=== PATIENT | female | born 1955 | race Two or more races ===

== ENCOUNTER 2021-04-11 20:41 | Emergency (ER) | payer SELFPAY ==
[2021-04-11 20:57] VITALS: BP 168/94; PULSE 97; RESP 16; TEMP 36.7; O2SAT 100; BMI 22.2
[2021-04-11 22:00] VITALS: BP 188/94; PULSE 98; RESP 15; O2SAT 98
[2021-04-12] VITALS: BP 192/103; PULSE 97; RESP 15; O2SAT 100
--- NOTE | 2021-04-12 01:18 | ED_ITS ---
HPI - General Adult General Chief complaint: General Medical Stated complaint: high blood pressure Time Seen by Provider: 04/11/21 23:36 Source: patient, family (Daughter) and aerial photograph interpreter Mode of arrival: ambulatory History of Present Illness HPI narrative: 65-year-old female asymptomatic hypertensive who is here from [place] due to the demise of her son. She forgot her medication in [place] and is waiting for her to send it to her. Her daughter checked her blood pressure and noted that it was elevated, however patient denies any dizziness, headache, chest pain, shortness of breath. She is just requesting blood pressure medication until her is a arrives. Related Data Previous Rx's Medication Instructions Recorded lisinopril 40 mg PO DAILY #3 tab 04/12/21 Allergies Allergy/AdvReac Type Severity Reaction Status Date / Time No Known Allergies Allergy Unverified 04/12/21 00:59 Review of Systems Review of Systems: Pertinent positives and negatives as stated in HPI 10 point review of systems is otherwise negative. PMFSH Past Medical History Source: nursing notes reviewed Social History Social History Alcohol intake: unknown Smoking Status: Unknown if ever smoked Use of substances other than those prescribed or required for medical reasons: Unknown Advance Directives: No Advance Directives Information Provided: Yes Physical Exam Vital Signs: Vital Signs: Last Vital Signs Temp 96.8 F 04/12/21 03:39 Pulse 86 04/12/21 03:39 Resp 15 04/12/21 03:39 BP 121/70 04/12/21 03:39 Pulse Ox 98 04/12/21 03:39 Body Mass Index 22.2 VITAL SIGNS: Reviewed. GENERAL: Well developed, well nourished, in no acute distress. HEAD: Normocephalic/atraumatic, EYES: PERRLA, EOMI EARS: Ext canals without abnormality NOSE: Nares patent bilateral OROPHARYNX: no oral lesions noted, posterior pharynx clear NECK: Supple, no adenopathy LUNGS: Normal breath sounds. No adventitious sounds or accessory muscle use. SpO2<98> CARDIOVASCULAR: Regular rate and rhythm without noted murmurs, no JVD or lower extremity edema. ABDOMEN: Soft, non-tender, non-distended with bowel sounds. NEUROLOGIC: Alert and oriented x 4. Course Course Course Narrative: 65-year-old female with history and clinical presentation consistent with underlying hypertension that is otherwise asymptomatic and patient requesting medications until hers arrive. She was provided with a single dose of lisinopril here in the emergency room and on re-evaluation is noted to have good blood pressure control. She will be discharged 3 doses of lisinopril which should cover until hers arrive from [place]. She is otherwise stable for discharge. Medical Decision Making ECG Data Attestation: I personally reviewed and interpreted this ECG as follows: Prior ECG tracings: not available for review Interpretation: Normal sinus rhythm, HR -80, no evidence of acute ischemia, WV/QRS/QTC is within normal limits. Discharge Plan Discharge Clinical Impression: Hypertension Patient Disposition: Home, Self-Care Instructions: Hypertension (ED) Additional Instructions: 1. Kristen un seguimiento con moise proveedor de atenci?n primaria en los pr?ximos 2-3 d?as para charles reevaluaci?n. Regrese a la jihan de emergencias por cualquier empeoramiento lion de los s?ntomas. Prescriptions: New lisinopril 40 mg tablet 40 mg PO DAILY Qty: 3 RF: 0 Print Language: Norwegian
[2021-04-12 02:00] VITALS: BP 188/94; BP 192/102; PULSE 84; PULSE 91; RESP 15; O2SAT 98
[2021-04-12] MEDS: lisinopriL 40 MG TABLET PO (02:00)
--- NOTE | 2021-04-12 02:34 | PC.NURSE ---
Patient left [place] to come to the [facility] for her sons . Patient knew when she left [place] she did not have enough hypertension medication. Patient ran out of medication as of yesterday and came in tonight because bp elevated.
[2021-04-12 03:39] VITALS: BP 121/70; PULSE 86; RESP 15; TEMP 36; O2SAT 98
== END 2021-04-12 04:03 | disposition home or self-care (01) ==
PROVIDERS: Emergency Provider Student in an Organized Health Care Education/Training Program
DX: I10 Essential (primary) hypertension (principal); Z91.14 Patient's other noncompliance with medication regimen; Z79.899 Other long term (current) drug therapy
CPT/HCPCS: 99284

== ENCOUNTER 2021-09-11 14:38 | Outpatient (REF) | payer MEDICAID, SELFPAY ==
[2021-09-11 15:52] LABS: Anion Gap 13 (12-20); Blood Urea Nitrogen 11 mg/dL (9-16); Calcium 10.3 mg/dL (8.4-10.2); Carbon Dioxide 30 mmol/L (22-29); Chloride 104 mmol/L (96-108); Estimated Glomerular Filt Rate > 60; Glucose Random 83 mg/dL (60-115); Potassium 5.1 mmol/L (3.3-5.1); Sodium 142 mmol/L (135-145)
[2021-09-11 16:21] LABS: Vitamin B12 353 pg/mL (200-900)
[2021-09-12 08:05] LABS: Syphilis Screen Nonreactive (Nonreactive)
== END 2021-09-11 14:39 | disposition home or self-care (01) ==
LOC: HO.LAB 14:38
PROVIDERS: Visit Provider Psychiatry & Neurology Neurology
DX: F10.27 Alcohol dependence with alcohol-induced persisting dementia (principal)
CPT/HCPCS: 36415; 80048; 82607; 86780

== ENCOUNTER → 2022-03-14 13:29 | Outpatient (BNVA) | payer MEDICAID, SELFPAY | PROVIDERS: Visit Provider Obstetrics & Gynecology | DX: Z01.419 Encounter for gynecological examination (general) (routine) without abnormal findings (principal) ==

== ENCOUNTER 2022-04-19 12:26 | Outpatient (REF) | payer MEDICAID, SELFPAY ==
--- NOTE | ~2022-04-19 | MM_ITS ---
EXAMINATION: MM SCREENING DIGITAL BREAST TOMOSYNTHESIS, BILATERAL CLINICAL INFORMATION: Screening. Asymptomatic. Prior outside mammography from [place] currently unavailable. The lifetime risk of breast cancer based on the Tyrer-Cuzick Model is 3%. COMPARISON: None. TECHNIQUE: Digital breast tomosynthesis is performed in both the craniocaudal and mediolateral oblique views along with computer-aided detection (CAD). Synthesized 2D images are generated from the tomosynthesis. Additional right MLO view is provided. FINDINGS: There are scattered areas of fibroglandular density (ACR BI-RADS breast composition Category b). There are no significant masses, abnormal calcifications, or other abnormalities. The axilla and skin contours are unremarkable. There are scattered bilateral predominantly vascular calcifications. MM/MM tomosynthesis screening BI IMPRESSION: No mammographic evidence of malignancy. ASSESSMENT: BI-RADS 1: Negative RECOMMENDATION: Routine annual mammography screening. This patient's information was entered into a reminder system with a target due date for their next mammogram.
--- NOTE | ~2022-04-19 | MM_ITS ---
EXAMINATION: BONE DENSITOMETRY CLINICAL INDICATION: Menopause. COMPARISON: None (current study represents initial baseline exam). TECHNIQUE: Using a BlikBook DXA System (software version: 13.1) manufactured by [employer], dual-energy x-ray absorptiometry was performed of the lumbar spine and left hip. The images are of good technical quality. Summary results are attached. FINDINGS: AP SPINE L1-L4: BMD 0.859 g/cm2, Z-score -0.6, T-score -2.7, osteoporosis. LEFT FEMUR, NECK: BMD 0.595 g/cm2, Z-score -1.3, T-score -3.2, osteoporosis. LEFT FEMUR, TOTAL: BMD 0.531 g/cm2, Z-score -2.1, T-score -3.8, osteoporosis. IDENTIFIED RISK FACTORS: Early menopause, dementia, hysterectomy, secondary osteoporosis. HISTORY OF FRACTURE: None listed. MEDICATIONS: Calcium. MM/XR DEXA axial skeleton IMPRESSION: 1. DIAGNOSIS: Osteoporosis based on the lowest T-score value of -3.8 in the total femur applying World Health Organization criteria. 2. 10-YEAR FRACTURE RISK PREDICTION, FRAX: According to the guidelines, FRAX calculation should only be performed on patients in the osteopenia bone density category. Therefore, FRAX was not performed on this patient. 3. Treatment Recommendations: NOF guidelines recommend consideration for treatment in postmenopausal women and men age 50 and older presenting with the following: -A hip or vertebral (clinical or morphometric) fracture. -T-score less than or equal to -2.5 at the femoral neck or spine after appropriate evaluation to exclude secondary causes. -Low bone mass at the hip or spine and a 10-year fracture probability by FRAX of greater than or equal to 3% for hip fracture or greater than or equal to 20% for major osteoporotic fracture based on the [place] adapted WHO algorithm. 4. Other Recommendations: All treatment decisions require clinical judgment and consideration of individual patient factors, including patient preferences, comorbidities, previous drug use, risk factors not captured in the FRAX model (e.g. frailty, falls, vitamin D deficiency, increased bone turnover, interval significant decline in bone density) and possible under or overestimation of fracture risk by FRAX. Additional medical evaluation for secondary cause of low bone mineral density may be appropriate. FUTURE SCAN RECOMMENDATION: People with diagnosed cases of osteoporosis or at high risk for fracture should have regular bone mineral density tests. For patients eligible for Medicare, routine testing is allowed once every 2 years. The testing frequency can be increased to one year for patients who have rapidly progressing disease, those who are receiving or discontinuing medical therapy to restore bone mass, or have additional risk factors.
== END 2022-04-19 12:27 | disposition home or self-care (01) ==
LOC: HO.MAMMO 12:26
PROVIDERS: Visit Provider Obstetrics & Gynecology
DX: Z12.31 Encounter for screening mammogram for malignant neoplasm of breast (principal); Z13.820 Encounter for screening for osteoporosis; Z78.0 Asymptomatic menopausal state; M81.0 Age-related osteoporosis without current pathological fracture
CPT/HCPCS: 77063; 77067; 77080

== ENCOUNTER → 2022-05-28 14:24 | Outpatient (BNVA) | payer MEDICAID, SELFPAY | PROVIDERS: Visit Provider Obstetrics & Gynecology | DX: M81.0 Age-related osteoporosis without current pathological fracture (principal) | CPT/HCPCS: 99212 ==

== ENCOUNTER → 2022-08-12 13:42 | Outpatient (BNVA) | payer MEDICAID, SELFPAY | PROVIDERS: PCP Internal Medicine; Visit Provider Nurse Practitioner Family | DX: Z01.818 Encounter for other preprocedural examination (principal); K59.04 Chronic idiopathic constipation; K21.9 Gastro-esophageal reflux disease without esophagitis | CPT/HCPCS: 99202 ==

== ENCOUNTER 2022-09-23 14:46 | Outpatient (REF) | payer MEDICAID, SELFPAY ==
[2022-09-23 16:02] LABS: Hematocrit 36.6 % (37.0-47.0); Hemoglobin 11.6 g/dl (12.0-16.0); Mean Corpuscular HGB Conc 31.7 g/dl (31.0-35.0); Mean Corpuscular Hemoglobin 27.5 pg (27.0-33.0); Mean Corpuscular Volume 86.7 fL (80.0-98.0); Mean Platelet Volume 10.8 fL (9.4-12.3); Platelet Count 321 X10*3/uL (160-400); Red Blood Count 4.22 X10*6/uL (4.20-5.50); Red Cell Distribution Width 13.2 % (11.0-16.0); White Blood Count 6.4 X10*3/uL (4.8-10.8)
[2022-09-23 16:18] LABS: Alanine Aminotransferase 21 U/L (0-31); Albumin Level 4.6 g/dL (3.5-5.0); Alkaline Phosphatase 82 U/L (39-117); Anion Gap 16 (12-20); Aspartate Amino Transferase 16 U/L (5-31); Bilirubin Total 0.4 mg/dL (0.0-1.0); Blood Urea Nitrogen 15 mg/dL (9-16); Calcium 10.2 mg/dL (8.4-10.2); Carbon Dioxide 27 mmol/L (22-29); Chloride 102 mmol/L (96-108); Estimated Glomerular Filt Rate > 60; Glucose Random 89 mg/dL (60-115); Sodium 140 mmol/L (135-145); Total Protein 7.7 g/dL (6.5-8.0)
== END 2022-09-23 14:47 | disposition home or self-care (01) ==
LOC: HO.LAB 14:46
PROVIDERS: Visit Provider Nurse Practitioner Family
DX: K21.9 Gastro-esophageal reflux disease without esophagitis (principal); K59.04 Chronic idiopathic constipation
CPT/HCPCS: 36415; 80053; 85027; 99212

== ENCOUNTER 2023-04-28 16:23 | Outpatient (REF) | payer MEDICARE, MEDICAID, SELFPAY ==
--- NOTE | ~2023-04-28 | MM_ITS ---
EXAMINATION: MM SCREENING DIGITAL BREAST TOMOSYNTHESIS, BILATERAL CLINICAL INFORMATION: Screening. Asymptomatic. The lifetime risk of breast cancer based on the Tyrer-Cuzick Model is 5%. COMPARISON: Mammography: 04/19/2022 (new baseline). TECHNIQUE: Digital breast tomosynthesis is performed in both the craniocaudal and mediolateral oblique views along with computer-aided detection (CAD). Synthesized 2D images are generated from the tomosynthesis. FINDINGS: There are scattered areas of fibroglandular density (ACR BI-RADS breast composition Category b). There are no significant masses, abnormal calcifications, or other abnormalities. Parenchymal pattern is similar to prior new baseline exam. No architectural abnormality. There are bilateral vascular calcifications. The axilla and skin contours are unremarkable. No significant changes. MM/MM tomosynthesis screening BI IMPRESSION: No mammographic evidence of malignancy. ASSESSMENT: BI-RADS 1: Negative RECOMMENDATION: Routine annual mammography screening. This patient's information was entered into a reminder system with a target due date for their next mammogram.
== END 2023-04-28 16:24 | disposition home or self-care (01) ==
LOC: HO.MAMMO 16:23
PROVIDERS: PCP Internal Medicine; Visit Provider Internal Medicine
DX: Z12.31 Encounter for screening mammogram for malignant neoplasm of breast (principal)
CPT/HCPCS: 77063; 77067

== ENCOUNTER 2023-06-02 13:58 | Outpatient (AMB) | payer MEDICARE, MEDICAID, SELFPAY ==
--- NOTE | 2023-06-02 14:00 | MHC.OFFVIS ---
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 No complaints. Last Pap/HPV was many years ago no history of abnormal Pap smear, the patient is status post hysterectomy for benign disease Last Mammogram was BI-RADS 1 in 05/16 Last Colonoscopy long time ago Last DEXA scan showed osteoporosis 04/14, the patient was referred to rheumatology [facility] Medical History Anxiety Hypertension Surgical History H/O: hysterectomy Hx of section Family History Mother Breast CA Social History Household Members Other:: daughter Housing: Apartment Alcohol intake: never Patient Tobacco Use Status: Never used Tobacco Current occupational status: disabled Sexual orientation: Straight/Heterosexual Gender identity: Female Female Reproductive History Menstrual Age of Menarche: 14 Total pregnancies: 4 Full term: 3 Number of Living Children: 3 Ab spontaneous: 1 Date of Mammogram: 04/28/23 Date of last Bone Density Screenin04/19/22 Review of Systems Const All systems reviewed & are unremarkable except as noted in HPI and below Card Reports as per HPI and Reports no additional complaints Resp Reports as per HPI and Reports no additional complaints GI Reports as per HPI and Reports no additional complaints Reports as per HPI Physical Exam Const General: cooperative, healthy appearing and comfortable General: Yes bladder normal to palpation External Female Exam: No lesion Speculum Exam - Vagina: normal appearance of the vagina, normal vaginal discharge and not erythematous Speculum Exam - Cervix: Cervix absent Bimanual exam- vagina & uterus: bladder normal to palpation and uterus absent Bimanual Exam- Adnexa, other: Other (No masses detected) Assessment & Plan Assessment & Plan (1) Well woman exam: Code(s): Z01.419 - Encounter for gynecological examination (general) (routine) without abnormal findings Plan: Co testing not indicated since the patient 's age is above 65 with no history of abnormal Pap smears last 25 years. Counseled the patient about the recommended dietary allowance of 1200 mg of Calcium & 800 IU of vitamin D. Instructions given to patient to schedule her next screening mammogram in 05/17, referred to GI for screening colonoscopy. The patient was instructed to perform monthly self-breast exams and to schedule a 2 week DEXA scan follow-up appointment and an annual exam in a year; all questions answered and the patient verbalized understanding. (2) Osteoporosis: Comment: 03/2022: AP SPINE L1-L4: T-score -2.7 LEFT FEMUR, NECK:T score -3.2, osteoporosis. LEFT FEMUR, TOTAL: T score -3.8, osteoporosis Code(s): M81.0 - Age-related osteoporosis without current pathological fracture Plan: Since the patient did not get appoint with rheumatology last 04/14 will Refer again to Rheumatology for further management Orders: Referrals Rheumatology Referral M81.0 - Age-related osteoporosis without current pathological fracture Gastroenterology Referral Z12.11 - Encounter for screening for malignant neoplasm of colon Coding Level of Care Code Est Pt Prev Care >65y(23731) Diagnoses Well woman exam Z01.419 Osteoporosis M81.0
[2023-06-02 14:05] VITALS: BP 120/72; BMI 24.0
== END 2023-06-02 14:59 | disposition home or self-care (01) ==
LOC: HO.HWS 13:59
PROVIDERS: PCP Internal Medicine; Visit Provider Obstetrics & Gynecology
DX: Z01.419 Encounter for gynecological examination (general) (routine) without abnormal findings (principal); M81.0 Age-related osteoporosis without current pathological fracture
CPT/HCPCS: G0101

== ENCOUNTER → 2023-06-02 13:58 | Outpatient (BNVA) | payer MEDICARE, MEDICAID, SELFPAY | PROVIDERS: PCP Internal Medicine; Visit Provider Obstetrics & Gynecology | DX: Z01.419 Encounter for gynecological examination (general) (routine) without abnormal findings (principal); M81.0 Age-related osteoporosis without current pathological fracture | CPT/HCPCS: G0101 ==

== ENCOUNTER 2023-06-23 12:04 | Outpatient (AMB) | payer MEDICARE, MEDICAID, SELFPAY ==
[2023-06-23 12:12] VITALS: BP 127/61; PULSE 69; BMI 23.5
--- NOTE | 2023-06-23 12:12 | MHC.OFFVIS ---
Intake Vital Signs 06/23/23 12:12 Height 4 ft 11 in Weight 116 lb 6.465 oz BMI 23.5 BP 127/61 Blood Pressure Location Lt brachial Position Sitting Pulse 69 Intake Visit Reasons: f/u [facility] Intake Note: Rosetta presents in office as a est.patient for a f/u for [facility]. 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 Patient was encouraged to take 2 tablets if she does not have a bowel movement and half a day. Patient was also encouraged to increase fluid intake and activity to promote better bowel motility. Screen for colon cancer Never had colorectal screening. Denies any family history of colorectal cancer. No issues with anesthesia in the past. Not on any anticoagulation medication. Patient did not have a history of sleep apnea. Denies any in cardiac or respiratory symptoms. Patient will be scheduled for colonoscopy. Discussed with patient and her daughter the importance of good bowel prep and clear liquid diet before the procedure. What to expect before during and after the procedure discussed with patient and her daughter. GERD (gastroesophageal reflux disease) Occasional symptoms of acid reflux are subsided after patient started moving her bowels little better and with omeprazole 20 mg. We will try to keep her on it for short time and patient can wean herself off. Patient was also encouraged to avoid dietary triggers and late night snacking. Staying upright for minimal 3 after meals discussed with patient. I will see her after colonoscopy. Patient is agreeable to this plan and verbalizes understanding of instructions. However if patient will have worsening acid reflux, dysphagia, dyspepsia or odynophagia she was encouraged to call the office so we can also send her for upper endoscopy. Both patient and her daughter were given the opportunity to ask questions and all questions answered. ? Thank you for allowing me to participate in her care Plan Orders Orders Comprehensive Met. Panel 09/23/22 K59.04, K21.9 Complete Blood Count no Diff 09/23/22 K21.9, K59.04 Medications New bisacodyl (Dulcolax (bisacodyl)) take 2 tabs at noon the day before your colonoscopy 10 mg (2 x 5 mg) PO ONCE 2 tabs 0RF 1 day Z12.11 polyethylene glycol 3350 (Miralax) As directed by gastroenterology department at [facility] 238 grams PO ONCE 238 grams 0RF Z12.11 TODAY'S VISIT Patient is here requesting to be seen for constipation. Patient is taking 1 Senokot every night in continues to be constipated. Patient has not been schedule for colonoscopy yet. No change in her condition since last seen. Patient continues to have no chest pain or shortness of breath with or without exertion. Patient denies having any epigastric pain or discomfort. Denies dyspepsia, dysphagia or odynophagia. Patient denies melena, hematochezia, unintentional weight loss or ribbon like stools. PFSH Medical History Anxiety Hypertension Surgical History H/O: hysterectomy Hx of section Family History Mother Breast CA Social History Household Members Other:: daughter Housing: Apartment Alcohol intake: never Patient Tobacco Use Status: Never used Tobacco Current occupational status: disabled Sexual orientation: Straight/Heterosexual Gender identity: Female Female Reproductive History Menstrual Age of Menarche: 14 Review of Systems Const Denies weight gain and Denies weight loss ENT Reports no additional complaints, Denies dysphagia and Denies odynophagia Card Reports no additional complaints Resp Reports no additional complaints GI Denies abdominal pain, Denies belching, Denies melena, Denies bloating, Reports constipation, Denies dysphagia, Denies excessive flatus, Denies dyspepsia, Denies heartburn, Denies diarrhea, Denies loose stools, Denies nausea, Denies odynophagia and Denies vomiting Reports no additional complaints Musc Reports no additional complaints Neuro Reports no additional complaints Psych Reports no additional complaints Endo Reports no additional complaints Physical Exam Vital Signs: Last Vital Signs Pulse 69 06/23/23 12:12 BP 127/61 06/23/23 12:12 BMI result Body Mass Index 23.5 Assessment & Plan Assessment & Plan (1) Chronic idiopathic constipation: Code(s): K59.04 - Chronic idiopathic constipation Plan: Senokot 2 tablets every night. Patient will increase fluid intake and activity to promote better bowel motility. Patient reports that she occasionally will still feel constipated (2) Screen for colon cancer: Code(s): Z12.11 - Encounter for screening for malignant neoplasm of colon Plan: Will book procedure today for patient. Went over what to expect before during and after the procedure. Went in detail with patient and her daughter about foods how to prep. Clear liquid diet explained to patient as well as split prep explained to patient and her daughter. (3) GERD (gastroesophageal reflux disease): Code(s): K21.9 - Gastro-esophageal reflux disease without esophagitis Qualifiers: Esophagitis presence: esophagitis presence not specified Qualified Code(s): K21.9 - Gastro-esophageal reflux disease without esophagitis Plan: Patient denies any acid reflux. Takes omeprazole occasionally. Discussed with patient avoiding dietary triggers and late night snacking. Staying upright for minimum 3 hours after meals discussed with her. I will see her after the procedure, sooner on as needed basis. Both patient and her daughter are agreeable to this plan and verbalize understanding of instructions. They were given the opportunity to ask questions and all questions answered. Thank you for allowing me to participate in her care Medications: Changed From sennosides (Natural Senna Laxative) Take it 1 tablet every evening for (translate in Kazakh) 8.6 mg PO BEDTIME 90 tabs 3RF constipation K59.00 - Constipation, unspecified To sennosides (Natural Senna Laxative) Take it 1 tablet every evening for (translate in Kazakh) 17.2 mg (2 x 8.6 mg) PO BEDTIME 180 tabs 3RF constipation K59.00 - Constipation, unspecified Refilled sennosides (Natural Senna Laxative) Take it 1 tablet every evening for (translate in Kazakh) 8.6 mg PO BEDTIME 90 tabs 3RF constipation K59.00 - Constipation, unspecified Coding Level of Care Code Est Pt Level 3 (31280) Diagnoses Chronic idiopathic constipation K59.04 Screen for colon cancer Z12.11 GERD (gastroesophageal reflux disease) K21.9 Esophagitis presence: esophagitis presence not specified Time Spent (min) 35 Comment 20 minutes spent with patient and additional 15 minutes spent reviewing her records
== END 2023-06-23 13:08 | disposition home or self-care (01) ==
PROVIDERS: PCP Internal Medicine; Visit Provider Nurse Practitioner Family
DX: K59.04 Chronic idiopathic constipation (principal); Z12.11 Encounter for screening for malignant neoplasm of colon; K21.9 Gastro-esophageal reflux disease without esophagitis
CPT/HCPCS: 99213

== ENCOUNTER → 2023-06-23 12:04 | Outpatient (BNVA) | payer MEDICARE, MEDICAID, SELFPAY | PROVIDERS: PCP Internal Medicine; Visit Provider Nurse Practitioner Family | DX: Z12.11 Encounter for screening for malignant neoplasm of colon (principal); K59.04 Chronic idiopathic constipation; K21.9 Gastro-esophageal reflux disease without esophagitis | CPT/HCPCS: 99212 ==

== ENCOUNTER 2024-01-16 13:01 | Outpatient (REF) | payer MEDICARE, MEDICAID, SELFPAY ==
--- NOTE | ~2024-01-16 | CT_ITS ---
EXAMINATION: CT HEAD WITHOUT CONTRAST CLINICAL INFORMATION: Worsening headaches. COMPARISON: None. TECHNIQUE: Contiguous axial imaging was performed from the skullbase to vertex without intravenous administration of contrast. This CT examination was performed using dose optimization techniques as appropriate, variously including the following: *Automated exposure control *Adjustment of mA and/or kV according to patient size (this includes techniques or standardized protocols for targeted exams where dose is matched to indication/reason for exam; i.e. extremities or head) *Use of iterative reconstruction technique DLP: 703 mGy-cm. FINDINGS: There is no evidence of acute intracranial hemorrhage or territorial infarction. No abnormal mass effect or midline shift is seen. Wilson to white matter differentiation is well preserved. No extra-axial fluid collections are identified. Moderate diffuse brain parenchymal volume loss noted with mild to moderate chronic white matter microangiopathy. The osseous structures and soft tissues are normal. The mastoid air cells and visualized portions of the paranasal sinuses are well aerated. CT/CT head/brain wo IV con IMPRESSION: No acute intracranial hemorrhage or territorial infarction. Moderate diffuse brain parenchymal volume loss and chronic white matter microangiopathy.
== END 2024-01-16 13:02 | disposition home or self-care (01) ==
LOC: HO.CT 13:01
PROVIDERS: PCP Internal Medicine; Visit Provider Internal Medicine
DX: G44.209 Tension-type headache, unspecified, not intractable (principal)
CPT/HCPCS: 70450

== ENCOUNTER 2024-09-21 08:47 | Outpatient (REF) | payer OTHER, SELFPAY ==
--- NOTE | ~2024-09-21 | XR_ITS ---
EXAMINATION: XR FOOT, LEFT CLINICAL INFORMATION: Left foot pain COMPARISON: None available. TECHNIQUE: AP, lateral, and oblique views of the left foot. FINDINGS: No fracture, dislocation or destructive process. There is a prominent plantar spur as well as prominent spurring along the posterior calcaneus at the insertion of the Achilles tendon. There is mild productive change along the dorsal midfoot. XR/XR foot LT min 3V IMPRESSION: Chronic degenerative change noted. No acute findings. Electronically signed by: Clark Arauz MD 09/21/2024 11:09 AM EDT
== END 2024-09-21 08:48 | disposition home or self-care (01) ==
LOC: HO.HHCX 08:47
PROVIDERS: Visit Provider Nurse Practitioner Family
DX: M79.672 Pain in left foot (principal)
CPT/HCPCS: 73630

== ENCOUNTER 2024-11-01 10:57 | Outpatient (AMB) | payer OTHER, SELFPAY ==
--- NOTE | 2024-11-01 11:07 | A.OFFVIS_ITS ---
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 No complaints. Last Pap/HPV was many years ago, no history of abnormal Pap smear, the patient is status post hysterectomy for benign disease Last Mammogram was BI-RADS 1 in 05/16 Last Colonoscopy long time ago Last DEXA scan showed osteoporosis 04/14, the patient was referred to rheumatology, the patient was not seen [facility] Medical History Dementia Hypertension Anxiety Surgical History H/O: hysterectomy Hx of section Family History Mother Breast CA Social History Household Members Other:: daughter Housing: Apartment Alcohol intake: never Patient Tobacco Use Status: Never used Tobacco Current occupational status: disabled Sexual orientation: Straight/Heterosexual Gender identity: Female Female Reproductive History Menstrual Age of Menarche: 14 Total pregnancies: 4 Full term: 3 Number of Living Children: 3 Ab spontaneous: 1 Date of Mammogram: 04/28/23 Review of Systems Const All systems reviewed & are unremarkable except as noted in HPI and below Card Reports as per HPI and Reports no additional complaints Resp Reports as per HPI and Reports no additional complaints GI Reports as per HPI and Reports no additional complaints Reports as per HPI Physical Exam Vital Signs: Last Vital Signs BP 110/70 11/01/24 11:11 BMI result Body Mass Index 22.5 Const General: cooperative, healthy appearing and comfortable Chest Chest palpation & inspection: normal inspection of the chest and normal palpation of entire chest wall Breast/axilla inspection: normal inspection of the breasts and normal inspection of the axillae Breast/axilla palpation: normal palpation of the breasts General: Yes bladder normal to palpation External Female Exam: No lesion Speculum Exam - Vagina: normal appearance of the vagina, normal vaginal discharge and not erythematous Speculum Exam - Cervix: Cervix absent Bimanual exam- vagina & uterus: bladder normal to palpation and uterus absent Bimanual Exam- Adnexa, other: Other (No masses detected) Assessment & Plan Assessment & Plan (1) Well woman exam: Code(s): Z01.419 - Encounter for gynecological examination (general) (routine) without abnormal findings Category: Medical Plan: Co testing not indicated since the patient 's age is above 65 status post hysterectomy with no history of abnormal Pap smears last 25 years. Counseled the patient about the recommended dietary allowance of 1200 mg of Calcium & 800 IU of vitamin D. Mammogram ordered. Referred her for screening colonoscopy done. Will order DEXA scan . The patient was instructed to perform monthly self-breast exams and to schedule a 2 week DEXA scan follow-up appointment and an annual exam in a year; All questions answered and the patient verbalized understanding. Orders: Orders XR DEXA axial skeleton Today Z78.0 - Asymptomatic menopausal state MM tomosynthesis screening BI Today Z12.31 - Encounter for screening mammogram for malignant neoplasm of breast Referrals Gastroenterology Referral Z12.11 - Encounter for screening for malignant neoplasm of colon Coding Level of Care Code Est Pt Prev Care >65y(24294) Diagnoses Well woman exam Z01.419
[2024-11-01 11:11] VITALS: BP 110/70; BMI 22.5
== END 2024-11-01 11:54 | disposition home or self-care (01) ==
LOC: HO.HWS 10:57
PROVIDERS: PCP Internal Medicine; Visit Provider Obstetrics & Gynecology
DX: Z01.419 Encounter for gynecological examination (general) (routine) without abnormal findings (principal)
CPT/HCPCS: 99397

== ENCOUNTER → 2024-11-01 10:57 | Outpatient (BNVA) | payer OTHER, SELFPAY | PROVIDERS: PCP Internal Medicine; Visit Provider Obstetrics & Gynecology | DX: Z01.419 Encounter for gynecological examination (general) (routine) without abnormal findings (principal) | CPT/HCPCS: 99397; 99459 ==

== ENCOUNTER 2024-12-21 09:53 | Outpatient (REF) | payer OTHER, SELFPAY ==
--- OUTSIDE RECORDS SUMMARY | 2024-12-21 10:29 | XMS_ITS | Encounter Summary ---
Author Organization [employer] Address [address] [facility] [address] [place] [address] Care Team Providers Care Profiling Machine Set Up Operator Tool Name Role Phone Connor Krishna MD Primary Care Provider [phone] Reason for Visit * Reason Onset Date Comments Change PCP 10/20/2024 Encounter Details Date Type Department Care Team ([facility] st Contact Info) Description 10/20/2024 Telephone [facility] MEDICINE [address] [place] [address] Connor Krishna MD [address] [place] [address] Change PCP Social History Tobacco Use Types Packs/Day Years Used Date Smoking Tobacco: Never Smokeless Tobacco: Never Alcohol Use Standard Drinks/Week Comments Not Currently 0 (1 standard drink = 0.6 oz pur e alcohol) Depression Answer Date Recorded Patient Health Questionnaire-9 Score 3 12/18/2023 Patient Health Questionnaire-9 Score 3 12/18/2023 Last PHQ-9: Questionnaire Data Not on file 0 12/18/2023 Housing Stability Answer Date Recorded What is your housing situation today? I have janice campbell 12/09/[address] you li ve. Do you have problems with any of the following? None of the above 12/09/2023 Food Insecurity Answer Date Recorded Within the past 12 months, y ou worried that your food would run out before you got money to buy more: Never True 12/09/2023 Within the past 12 months,th e food you bought just didn't last and you didn't have enough money to get more: Never True Transportation Answer Date Recorded In the past 12 months, has l ack of transportation kept you from medical appts, meetings, work or from getting things needed for daily living? No 12/09/2023 Utilities Answer Date Recorded In the past 12 months, has t he electric, gas, oil or water company threatened to shut off services in your home? No 12/09/2023 Depression Answer Date Recorded Patient Health Questionnaire-2 Score 1 12/18/2023 Comments Unknown Sex and Gender Information Value Date Recorded Sex Assigned at Female 09/23/2022 10:39 AM EDT Legal Sex Female 10:39 AM EDT Gender Identity Female 09/23/2022 10:39 AM EDT Sexual Orientation Straight 09/23/2022 10 :39 AM EDT documented as of this encounter Miscellaneous Notes * Telephone Encounter - Maranda Driscoll - 10/20/2024 10:27 AM EST Tc from pt daughter requesting a PCP Change to [facility] due to being closer to home. Please contact at [phone] Uzbek documented in this encounter Plan of Treatment Upcoming Encounters Date Type Department Care Team (Late st Contact Info) Description 01/18/2025 2:00 PM EST Office Visit [facility] ADULT DENTAL [address] [place] [address] Terell Krishna documented as of this encounter Visit Diagnoses Not on filedocumented in this encounter Additional Health Concerns Assessment Noted Time PHQ-9 Depression Total Score: 3 12/18/19 24 3:14 PM EST documented as of this encounter Care Teams Profiling Machine Set Up Operator Tool Relationship Specialty Start Date End Date Connor Krishna MD [address] [place] [address] PCP - General Internal Medicine 10/24/21 documented as of this encounter
--- OUTSIDE RECORDS SUMMARY | 2024-12-21 10:29 | XMS_ITS | Clinical Summary ---
Author Organization [facility] it Address [address] [place] [address] Care Team Providers Care House Painter Helper Name Role Phone Physician, Pcp Unknown Primary Care Provider Cecy vailable Social History Tobacco Use Types Packs/Day Years Used Date Smoking Tobacco: Never Assessed Sex and Gender Information Value Date Recorded Sex Assigned at Not on file Gender Identity Not on file Sexual Orientation Not on file Job Start Date Occupation Industry Not on file Not on file Not on file Plan of Treatment Upcoming Encounters Date Type Department Care Team (Late st Contact Info) Description 12/30/2024 9:45 AM EST Office Visit Orthopedic Surgery - [place] [id number] [id number] Buddy Piper, DPM [address] [address] Health Maintenance Due Date Last Done Comments Breast Cancer Screening 1954 DTaP,Tdap,and Td Vaccines (1 - Tdap) 1973 Zoster Vaccines (1 of 2) 2004 Pneumococcal Vaccine: 65+ Ye ars (1 of 1 - PCV) 2019 Colorectal Cancer Screening: Colonoscopy 10/27/2022 Depression Screening 10/27/2022 Falls Risk Assessment 10/27/2022 Hepatitis C Screening 10/27/2022 Osteoporosis Screening (Bone Density Screening) 10/27/2022 Social Influencers of Health Screening 10/27/2022 COVID-19 Vaccine (1 - 2023-2 5 season) 2024 Influenza Vaccine (#1) 2024 RSV Immunization Patients 60 + Years Old (1 - 1-dose 75+ series) 2029 HIB Vaccines Aged Out No longer eligi ble based on patient's age to complete this topic HPV Vaccines Aged Out No longer eligi ble based on patient's age to complete this topic Hepatitis A Vaccines Aged Out No long er eligible based on patient's age to complete this topic Hepatitis B Vaccines Aged Out No long er eligible based on patient's age to complete this topic IPV Vaccines Aged Out No longer eligi ble based on patient's age to complete this topic MMR Vaccines Aged Out No longer eligi ble based on patient's age to complete this topic Meningococcal ACWY Vaccine Aged Out N o longer eligible based on patient's age to complete this topic RSV Immunization Patients Un s[place] 20 months Aged Out No longer eligible b ased on patient's age to complete this topic Varicella Vaccines Aged Out No longer eligible based on patient's age to complete this topic Care Teams House Painter Helper Relationship Specialty Start Date End Date Physician, Pcp Unknown PCP - General 12/15/24
--- OUTSIDE RECORDS SUMMARY | 2024-12-21 10:29 | XMS_ITS | Encounter Summary ---
Author Organization [employer] Address [address] [facility] [address] [place] [address] Care Team Providers Care Light Bulb Assembler Name Role Phone Connor Krishna MD Primary Care Provider [phone] Reason for Visit * Reason Onset Date Comments Appointment Request 07/11/2023 Encounter Details Date Type Department Care Team ([facility] st Contact Info) Description 07/11/[address] [facility] CHC MED & PEDS [address] [place], [place] [phone] Connor Krishna MD [address] [place], [place] [phone] Appointment Request Social History Tobacco Use Types Packs/Day Years Used Date Smoking Tobacco: Never Smokeless Tobacco: Never Alcohol Use Standard Drinks/Week Comments Not Currently 0 (1 standard drink = 0.6 oz pur e alcohol) Comments Unknown Sex and Gender Information Value Date Recorded Sex Assigned at Female 09/23/2022 10:39 AM EDT Legal Sex Female 10:39 AM EDT Gender Identity Female 09/23/2022 10:39 AM EDT Sexual Orientation Straight 09/23/2022 10 :39 AM EDT documented as of this encounter Miscellaneous Notes * Telephone Encounter - Jorge Houston - 07/11/2023 4:35 PM EDT Tc from Daughters requesting an appt with provider for a check up. Please contact daughter at [phone] documented in this encounter Plan of Treatment Upcoming Encounters Date Type Department Care Team (Late st Contact Info) Description 01/18/2025 2:00 PM EST Office Visit [facility] ADULT DENTAL [address] [place] [address] Terell Krishna documented as of this encounter Visit Diagnoses Not on filedocumented in this encounter Care Teams Light Bulb Assembler Relationship Specialty Start Date End Date Connor Krishna MD [address] [place] [address] PCP - General Internal Medicine 10/24/21 documented as of this encounter
--- OUTSIDE RECORDS SUMMARY | 2024-12-21 10:30 | XMS_ITS | Encounter Summary ---
Author Organization [employer] Address [address] [place] [address] Care Team Providers Care Magento Developer Name Role Phone Connor Krishna MD Primary Care Provider [phone] Encounter Details Date Type Department Care Team (Latest Contact Info) Description 12/21/2024 Travel Social History Tobacco Use Types Packs/Day Years Used Date Smoking Tobacco: Never Smokeless Tobacco: Never Alcohol Use Standard Drinks/Week Comments Not Currently 0 (1 standard drink = 0.6 oz pur e alcohol) Depression Answer Date Recorded Patient Health Questionnaire-9 Score 13 12/21/2024 Patient Health Questionnaire-9 Score 13 12/21/2024 Last PHQ-9: Questionnaire Data Not on file 0 12/21/2024 Housing Stability Answer Date Recorded What is your housing situation today? I have janice campbell 12/21/[address] you li ve. Do you have problems with any of the following? Inadequate heat 12/21/2024 Food Insecurity Answer Date Recorded Within the past 12 months, y ou worried that your food would run out before you got money to buy more: Sometimes True 2024 Within the past 12 months,th e food you bought just didn't last and you didn't have enough money to get more: Sometimes True 12/21/2024 Transportation Answer Date Recorded In the past 12 months, has l ack of transportation kept you from medical appts, meetings, work or from getting things needed for daily living? No 12/21/2024 Utilities Answer Date Recorded In the past 12 months, has t he electric, gas, oil or water company threatened to shut off services in your home? No 12/21/2024 Depression Answer Date Recorded Patient Health Questionnaire-2 Score 2 12/21/2024 Comments Unknown Sex and Gender Information Value Date Recorded Sex Assigned at Female 09/23/2022 10:39 AM EDT Legal Sex Female 10:39 AM EDT Gender Identity Female 09/23/2022 10:39 AM EDT Sexual Orientation Straight 09/23/2022 10 :39 AM EDT documented as of this encounter Plan of Treatment Upcoming Encounters Date Type Department Care Team (Late st Contact Info) Description 01/18/2025 2:00 PM EST Office Visit [facility] ADULT DENTAL [address] [place] [address] Terell Krishna documented as of this encounter Visit Diagnoses Not on filedocumented in this encounter Additional Health Concerns Assessment Noted Time PHQ-9 Depression Total Score: 13 025 9:50 AM EST documented as of this encounter Care Teams Magento Developer Relationship Specialty Start Date End Date Connor Krishna MD [address] [place] [address] PCP - General Internal Medicine 10/24/21 documented as of this encounter
--- OUTSIDE RECORDS SUMMARY | 2024-12-21 10:30 | XMS_ITS | Encounter Summary ---
Author Organization [facility] Address [address] [facility] [address] [place] [address] Care Team Providers Care Potato Chip Sorter Name Role Phone Connor Krishna MD Primary Care Provider [phone] Reason for Visit * Reason Comments Med Refill Encounter Details Date Type Department Care Team ([facility] Contact Info) Description 11/20/2022 Refill [facility] MEDICINE [address] [place], [place] [phone] Connor Krishna MD [address] [place] [address] Social History Tobacco Use Types Packs/Day Years Used Date Smoking Tobacco: Never Assessed Comments Unknown Sex and Gender Information Value Date Recorded Sex Assigned at Female 09/23/2022 10:39 AM EDT Legal Sex Female 10:39 AM EDT Gender Identity Female 09/23/2022 10:39 AM EDT Sexual Orientation Straight 09/23/2022 10 :39 AM EDT documented as of this encounter Plan of Treatment Upcoming Encounters Date Type Department Care Team ([facility] Contact Info) Description 01/18/2025 2:00 PM EST Office Visit [facility] CHC ADULT DENTAL [address] [place], [place] [phone] Terell Krishna documented as of this encounter Visit Diagnoses Not on filedocumented in this encounter Care Teams Potato Chip Sorter Relationship Specialty Start Date End Date Connor Krishna MD [address] [place] [address] PCP - General Internal Medicine 10/24/21 documented as of this encounter
--- OUTSIDE RECORDS SUMMARY | 2024-12-21 10:30 | XMS_ITS | Encounter Summary ---
Author Organization [employer] Address [address] 7[address] [place] [address] Care Team Providers Care Expansion Joint Builder Name Role Phone Connor Krishna MD Primary Care Provider [phone] Reason for Visit * Reason Comments Extended office visit Encounter Details Date Type Department Care Team ([facility] Contact Info) Description 12/21/2024 9:30 AM EST Office Visit [facility] CHC MED & PEDS [address] [place], [place] [phone] Connor Krishna MD [address] [place], [place] [phone] Primary hypertension (Primary Dx); Hypercholesterolemia; Moderate vascular dementia with agitation (CMS/HCC); Encounter for immunization Social History Tobacco Use Types Packs/Day Years [...] your housing situation today? I have janice adrian 12/21/[address] you li [...] AM EDT documented as of this encounter Last Filed Vital Signs Vital Sign Reading Time Taken Comments Blood Pressure 139/82 12/21/2024 9:12 AM EST Pulse 77 12/21/2024 9:12 AM EST Temperature 36.3 ??C (97.3 ??F) 12/21/2024 9:12 AM ES T Respiratory Rate 19 12/21/2024 9:12 AM EST Oxygen Saturation 98% 12/21/2024 9:12 AM EST Inhaled Oxygen Concentration - - Weight 49.9 kg (110 lb) 12/21/2024 9:12 AM EST Height 149.9 cm (4' 11 ) 12/21/2024 9:12 AM EST Body Mass Index 22.22 12/21/2024 9:12 AM EST documented in this encounter Progress Notes * Connor Krishna MD - 12/21/2024 9:30 AM EST Subjective Patient ID: Rosetta Galeas is a 69 y.o. female who presents for Extended office visit. HPI Patient with history of hypertension, dementia, hypercholesterolemia here for an extended office visit. Came in with her caregiver who reports that she is agitated at times, has a decreased appetite and poor sleep hygiene. She goes towards the program which helps her get stimulated during the daytime and to remain active. Also follows up with the memory clinic. Patient's caregiver is concerned about the declining of the memory and her poor appetite and is inquiring if medication could be helpful. Patient Active Problem List Diagnosis Anxiety Hypercholesterolemia Hypertensive disorder Lumbago Pain of foot Mass of foot Current Outpatient Medications on File Prior to Visit Medication Sig Dispense Refill Acetaminophen Extra Strength 500 MG tablet TAKE 2 TABS BY MOUTH THREE TIMES A DAY atorvastatin (Lipitor) 40 MG tablet TAKE 1 TABLET BY MOUTH AT BEDTIME 30 tablet 5 busPIRone (Buspar) 5 MG tablet TAKE 1 TABLET BY MOUTH TWICE DAILY FOR ANXIETY celecoxib (CeleBREX) 200 MG capsule TAKE 1 CAPSULE BY MOUTH TWICE DAILY NEEDED 60 capsule 5 Diclofenac Sodium 1 % gel APPLY TWO GRAM TO THE AFFECTED AREA(s) TWICE DAILY donepezil (Aricept) 10 MG tablet Take 10 mg by mouth at bedtime. escitalopram (Lexapro) 5 MG tablet TAKE 1 TABLET BY MOUTH DAILY FOR DEPRESSION / ANXIETY hydrOXYzine HCl (Atarax) 50 MG tablet TAKE 1 TABLET BY MOUTH THREE TIMES DAILY 90 tablet 5 losartan (Cozaar) 25 MG tablet TAKE 1 TABLET BY MOUTH EVERY DAY 90 tablet 3 mirtazapine (Remeron) 15 MG tablet TAKE 1 TABLET BY MOUTH EVERY DAY AT BEDTIME 30 tablet 5 Multiple Vitamin (Multivitamin) tablet TAKE 1 TABLET BY MOUTH ONCE DAILY 90 tablet 1 nystatin (Nystop) 348146 UNIT/GM powder APPLY TOPICALLY TWICE A DAY 30 g 0 omeprazole (PriLOSEC) [address] capsule TAKE 1 CAPSULE BY MOUTH ONCE DAILY EVERY MORNING 1/2 HOUR BEFORE BREAKFAST Salicylic Acid 27.5 % liquid Apply once a day x 6 days. Protect surrounding area w/ petrolatum jelly 10 mL 0 Salicylic Acid 3 % ointment To apply to the affected area once a day 30 g 0 senna (Senokot) 8.6 MG tablet TAKE 1 TABLET BY MOUTH AT BEDTIME FOR CONSTIPATION No current facility-administered medications on file prior to visit. No Known Allergies Review of Systems Objective BP 139/82 (BP Location: Left arm, Patient Position: Sitting, BP Cuff Size: Adult) Pulse 77 Temp97.3 ??F (36.3 ??C) (Oral) Resp 19 Ht 4' 11 (1.499 m) Wt 110 lb (49.9 kg) SpO2 98% BMI 22.22 kg/m?? Physical Exam Constitutional: General: She is not in acute distress. Appearance: Normal appearance. She is not ill-appearing, toxic-appearing or diaphoretic. HENT: Head: Normocephalic. Cardiovascular: Rate and Rhythm: Normal rate. Pulmonary: Effort: Pulmonary effort is normal. Abdominal: General: There is no distension. Palpations: Abdomen is soft. There is no mass. Tenderness: There is no abdominal tenderness. Musculoskeletal: General: Normal range of motion. Cervical back: Normal range of motion. Skin: General: Skin is warm. Neurological: Mental Status: She is alert. Cranial Nerves: No cranial nerve deficit or facial asymmetry. Motor: Motor function is intact. Coordination: Coordination is intact. Psychiatric: Mood and Affect: Mood normal. Assessment/Plan Diagnoses and all orders for this visit: Primary hypertension Comments: Stable No change in medication DASH diet. Orders: - CBC auto differential; Future - Lipid Panel, Standard; Future - Hepatitis C Viral RNA, Quantitative, Real-Time PCR; Future - Comprehensive Metabolic Panel; Future - TSH W/Reflex to FT4; Future Hypercholesterolemia Comments: Low-cholesterol diet Continue with Lipitor 40 mg daily. 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 Chang. Patient had several years history of cognitive decline. Was started on donepezil and the medicationwas tolerated at that time. She is dependent on her ADLs but needs assistance with her IADLs. On mirtazapine but patient has been noticed to show behavioral changes including outbursts of angerand irritability. Her MRI showed white matter disease. Some recommendation was made during that visit: Sertraline added as an antidepressant, mirtazapine dose will be decreased. A packet of information was provided to her daughter present during the encounter regarding dementia. Encounter for immunization - COVID-19 VACCINE (Realie) [phone] 12 yrs + documented in this encounter Plan of Treatment Upcoming Encounters Date Type Department Care Team ([facility] Contact Info) Description 01/18/2025 2:00 PM EST Office Visit [facility] ADULT DENTAL [address] [place] [address] Terell Krishna Scheduled Orders Name Type Priority Associated Diagnoses Orde r Schedule CBC auto differential Lab Routine Primary hypertension Hypercholesterolemia Expected: 12/21/2024 (Approximate), Expires: 12/21/2025 Lipid Panel, Standard Lab Routine Primary hypertension Hypercholesterolemia Expected: 12/21/2024 (Approximate), Expires: 12/21/2025 Hepatitis C Viral RNA, Quantitative, Real-Time PCR Lab Routine Primary hypertension Hypercholesterolemia Expected: 12/21/2024 (Approximate), Expires: 12/21/2025 Comprehensive Metabolic Panel Lab Routine Primary hypertension Hypercholesterolemia Expected: 12/21/2024 (Approximate), Expires: 12/21/2025 TSH W/Reflex to FT4 Lab Routine Primary hypertension Hypercholesterolemia Expected: 12/21/2024 (Approximate), Expires: 12/21/2025 documented as of this encounter Visit Diagnoses Diagnosis Primary hypertension- Primary Unspecified essential hypertension Hypercholesterolemia Pure hypercholesterolemia Moderate vascular dementia with agitation (CMS/HCC) Encounter for immunization documented in this encounter Additional Health Concerns Assessment Noted Time PHQ-9 Depression Total Score: 13 025 9:50 AM EST documented as of this encounter Care Teams Expansion Joint Builder Relationship Specialty Start Date End Date Connor Krishna MD [address] [place] [address] PCP - General Internal Medicine 10/24/21 documented as of this encounter
--- OUTSIDE RECORDS SUMMARY | 2024-12-21 10:30 | XMS_ITS | Encounter Summary ---
Author Organization [employer] Address [address] [facility] [address] [place] [address] Care Team Providers Care Purification Operator Helper Name Role Phone Connor Krishna MD Primary Care Provider [phone] Reason for Referral * Consultation (Routine) - Pending Review Specialty Diagnoses / Procedures Referred By Maximo byrne Referred To Contact Optometry Diagnoses Encounter for vision screening Primary hypertension Connor Krishna MD [address] [place] [address] Phone: tel: fax: [facility] [address] [place] [address] Phone: tel: fax: Referral ID Status Reason Start Date Expiration Date Visits Requested Visits Authorized [id number] Pending Review Consult and Treat 10/20/2025 1 1 Reason for Visit * Reason Onset Date Comments Referral 10/20/2024 Encounter Details Date Type Department Care Team (Late st Contact Info) Description 10/20/2024 Telephone [facility] [address] [place] [address] Connro Krishna MD [address], [place] [phone] Referral Social History Tobacco Use Types Packs/Day Years [...] encounter Miscellaneous Notes * Telephone Encounter - Puja Brice RN - 10/26/2024 3:23 PM EST Pt's daughter walked in to [place] team reception clerk in response to RN phone call re: ----- Message from Delicia Moreno sent at 10/24/2024 7:47 PM EST ----- Please let pt know she has a bony spur, when is visit with podaitry? Advised pt's daughter of pcp message re: test results. Pt's daughter verbalized understanding and reports that she is scheduled with podiatry on 12/30/24. Advised will update ordering provider and return call with any further recommendations. * Telephone Encounter - Maranda Driscoll - 10/20/2024 10:28 AM EST Tc from pt daughter requesting a referral for [facility] for annual eye exam. Please contact at [phone] Guatemalan documented in this encounter Plan of Treatment Upcoming Encounters Date Type Department Care Team (Late st Contact Info) Description 01/18/2025 2:00 PM EST Office Visit [facility] [address] [place] [address] Terell Krishna Scheduled Referrals Name Type Priority Associated Diagnoses Orde r Schedule Referral to [facility] Outpatient Referral Routine Encounter for vision screening Primary hypertension Expected: 10/20/2024 (Approximate), Expires: 10/20/2025 documented as of this encounter Visit Diagnoses Diagnosis Encounter for vision screening Primary hypertension Unspecified essential hypertension documented in this encounter Additional Health Concerns Assessment Noted Time PHQ-9 Depression Total Score: 3 12/18/19 24 3:14 PM EST documented as of this encounter Care Teams Purification Operator Helper Relationship Specialty Start Date End Date Connor Krishna MD [address] [place] [address] PCP - General Internal Medicine 10/24/21 documented as of this encounter
--- OUTSIDE RECORDS SUMMARY | 2024-12-21 10:30 | XMS_ITS | Encounter Summary ---
Author Organization [employer] Address [address] [facility] [address] [place] [address] Care Team Providers Care Desk Attendant Name Role Phone Connor Krishna MD Primary Care Provider [phone] Reason for Visit * Reason Comments Pre-visit Planning SDOH will need to be completed in office. Encounter Details Date Type Department Care Team ([facility] st Contact Info) Description 12/14/2024 Patient Outreach [facility] [address] [place], [place] [phone] Connor Krishna MD [address] [place], [place] [phone] Pre-visit Planning (SDOH will need to be completed in office. ) Social History Tobacco Use Types Packs/Day Years [...] AM EDT documented as of this encounter Progress Notes * Kristen Coleman - 12/14/2024 2:55 PM EST CC Kristen Echavarria placed successful outbound call to patient for pre-visit planning. Patient name and confirmed. Patient confirms appt date and time, and has transportation arrangements. Biggest concern for appointment at this time is patient has no appetite and sleeps for most of the day. Appropriate screenings completed in anticipation of appointment. documented in this encounter Plan of Treatment Upcoming Encounters Date Type Department Care Team (Late st Contact Info) Description 01/18/2025 2:00 PM EST Office Visit [facility] [address] [place] [address] Terell Krishna documented as of this encounter Visit Diagnoses Not on filedocumented in this encounter Additional Health Concerns Assessment Noted Time PHQ-9 Depression Total Score: 3 12/18/19 24 3:14 PM EST documented as of this encounter Care Teams Desk Attendant Relationship Specialty Start Date End Date Connor Krishna MD [address] [place] [address] PCP - General Internal Medicine 10/24/21 documented as of this encounter
--- OUTSIDE RECORDS SUMMARY | 2024-12-21 10:30 | XMS_ITS | Encounter Summary ---
Author Organization [facility] Address [address] [facility] [address] [place] [address] Care Team Providers Care Trailhead Construction Worker Name Role Phone Connor Krishna MD Primary Care Provider [phone] Reason for Visit * Reason Comments Med Refill Encounter Details Date Type Department Care Team ([facility] Contact Info) Description 12/23/2022 Refill [facility] [address] [place], [place] [phone] Connor Krishna MD [address] [place] [address] Generalized anxiety disorder Social History Tobacco Use Types Packs/Day Years [...] Upcoming Encounters Date Type Department Care Team ([facility] Contact Info) Description 01/18/2025 2:00 PM EST Office Visit [facility] [address] [place], [place] [phone] Terell Krishna documented as of this encounter Visit Diagnoses Diagnosis Generalized anxiety disorder documented in this encounter Care Teams Trailhead Construction Worker Relationship Specialty Start Date End Date Connor Krishna MD [address] [place] [address] PCP - General Internal Medicine 10/24/21 documented as of this encounter
--- OUTSIDE RECORDS SUMMARY | 2024-12-21 10:30 | XMS_ITS | Encounter Summary ---
Author Organization [employer] Address [address] [place] [address] Care Team Providers Care Leave Specialist Name Role Phone Connor Krishna MD Primary Care Provider [phone] Reason for Visit * Reason Comments Scaling And Root Planing Encounter Details Date Type Department Care Team ([facility] st Contact Info) Description 11/26/2024 8:00 AM EST Office Visit [facility] ADULT [facility] [address] [place] [address] Terell Krishna Dental calculus (Primary Dx) Social History Tobacco Use Types Packs/Day Years [...] Sign Reading Time Taken Comments Blood Pressure 134/76 11/26/2024 8:04 AM EST Pulse 75 11/26/2024 8:04 AM EST Temperature - - Respiratory Rate - - Oxygen Saturation - - Inhaled Oxygen Concentration - - Weight - - Height - - Body Mass Index - - documented in this encounter Progress Notes * Terell Krishna - 11/26/2024 8:00 AM EST Patient ID: Rosetta Galeas is a 69 y.o. female. Time Out: Timeout Date: 11/26/24, Timeout Time: 08 Location: [facility] Tooth: Maxilla and Mandible Procedure: Scaling and Root Planing Verified the above with patient, trust operations assistant, and provider. Confirmed via patient's chart, intraorally and by radiographs. Nurse Epidemiologist: not applicable Medical Hx: Vitals: Blood pressure 134/76, pulse 75. Medications, Med Hx reviewed with patient and updated in chart. Treatment Provided Dental procedures in this visit D4342 - PERIODONTAL SCALING AND ROOT PLANING - 1 TO 3 TEETH PER QUADRANT UR (Completed) Service provider: Terell Krishna Billaj provider: Jocelyn Williamson DDS D4342 - PERIODONTAL SCALING AND ROOT PLANING - 1 TO 3 TEETH PER QUADRANT LR (Completed) Service provider: Terell Krishna Billaj provider: Jocelyn Williamson DDS D9450 - CASE PRESENTATION, DETAILED AND EXTENSIVE TREATMENT PLANNING (Completed) Service provider: Terell Krishna Billaj provider: Jocelyn Williamson DDS Topical: 20% Benzocaine Confirmed profound anesthesia. Oral Cancer Screening: No lesions Head/Neck Exam: No Lesions Instruments Used: Ultrasonic Scalers Fluoride: N/A Calculus: Moderate and Localized Plaque: Light and Generalized Stain: Light and Generalized Bleeding: Light and Generalized Gingiva: Bleeding on probing OH: Fair Oral hygiene instructions provided to patient including brushing technique and flossing. Recommendations: [place] two times daily, modified benz technique, Floss daily Recall Frequency: 6 mo NV: srp left Hygienist: Terell Krishna RDH documented in this encounter Plan of Treatment Upcoming Encounters Date Type Department Care Team (Late st Contact Info) Description 01/18/2025 2:00 PM EST Office Visit [facility] [address] [place] [address] Terell Krishna documented as of this encounter Procedures Procedure Name Priority Date/Time Associated Diagnosis Comments LR PERIODONTAL SCALING AND ROOT PLANING - 1 TO 3 TEETH PER QUADRANT Routine 11/26/2024 8:00 AM EST UR PERIODONTAL SCALING AND ROOT PLANING - 1 TO 3 TEETH PER QUADRANT Routine 11/26/2024 8:00 AM EST [facility] - PROFESSIONAL VISITS - CASE PRESENTATION, SUBSEQUENT TO DETAILED AND EXTENSIVE TREATMENT PLANNING Routine 11/26/2024 8:00 AM EST documented in this encounter Visit Diagnoses Diagnosis Dental calculus- Primary Accretions on teeth documented in this encounter Additional Health Concerns Assessment Noted Time PHQ-9 Depression Total Score: 3 12/18/19 24 3:14 PM EST documented as of this encounter Care Teams Leave Specialist Relationship Specialty Start Date End Date Connor Krishna MD [address] [place] [address] PCP - General Internal Medicine 10/24/21 documented as of this encounter
--- OUTSIDE RECORDS SUMMARY | 2024-12-21 10:30 | XMS_ITS | Clinical Summary ---
Author Organization [employer] Address [address] [facility] 7[address] [place] [address] Care Team Providers Care Storyboard Artist Name Role Phone Connor Krishna MD Primary Care Provider [phone] Allergies No known active allergies Medications Acetaminophen Extra Strength 500 MG tablet TAKE 2 TABS BY MOUTH THREE TIMES A DAY 2 Active Diclofenac Sodium 1 % gel APPLY TWO GRAM TO THE AFFECTED AREA(s) TWICE DAILY 2 Active escitalopram (Lexapro) 5 MG tablet TAKE 1 TABLET BY MOUTH DAILY FOR DEPRESSION / ANXIETY 3 Active omeprazole (PriLOSEC) [address] capsule TAKE 1 CAPSULE BY MOUTH ONCE DAILY EVERY MORNING 1/2 HOUR BEFORE BREAKFAST 2 Active senna (Senokot) 8.6 MG tablet TAKE 1 TABLET BY MOUTH AT BEDTIME FOR CONSTIPATION 3 Active Salicylic Acid 3 % ointmentIndicat ions:Callus To apply to the affected area once a day 30 g 3 Active Salicylic Acid 27.5 % liquidIndicatio ns:Callus Apply once a day x 6 days. Protect surrounding area w/ petrolatum jelly 10 mL 3 Active mirtazapine (Remeron) 15 MG tablet TAKE 1 TABLET BY MOUTH EVERY DAY AT BEDTIME 30 tablet 5 4 Active celecoxib (CeleBREX) 200 MG capsuleIndicati ons:Chronic midline low back pain without sciatica TAKE 1 CAPSULE BY MOUTH TWICE DAILY NEEDED 60 capsule 5 4 Active hydrOXYzine HCl (Atarax) 50 MG tabletIndicatio ns:Generalized anxiety disorder TAKE 1 TABLET BY MOUTH THREE TIMES DAILY 90 tablet 5 4 Active busPIRone (Buspar) 5 MG tablet TAKE 1 TABLET BY MOUTH TWICE DAILY FOR ANXIETY 4 Active donepezil (Aricept) 10 MG tablet Take 10 mg by mouth at bedtime. 4 Active nystatin (Nystop) 826540 UNIT/GM powderIndicatio ns:Toe web intertrigo APPLY TOPICALLY TWICE A DAY 30 g 4 Active atorvastatin (Lipitor) 40 MG tablet TAKE 1 TABLET BY MOUTH AT BEDTIME 30 tablet 5 4 Active losartan (Cozaar) 25 MG tablet TAKE 1 TABLET BY MOUTH EVERY DAY 90 tablet 3 4 Active Multiple Vitamin (Multivitamin) tabletIndicatio ns:Generalized anxiety disorder TAKE 1 TABLET BY MOUTH ONCE DAILY 90 tablet 1 4 Active Active Problems Problem Noted Date Diagnosed Date Moderate vascular dementia with agitation 2024 Mass of foot 09/21/2024 Assessment & Plan (09/21/2024 5:36 PM EDT): X-ray and ultrasound ordered No compromise to skin Suspect mechanical due to bilateral nature, Referral to podiatry Pain of foot 09/20/2024 Lumbago 12/02/2022 Hypercholesterolemia 07/26/2022 Anxiety 08/10/2021 Hypertensive disorder 08/10/2021 Resolved Problems Problem Noted Date Diagnosed Date Resolved Date Moderate Alzheimer's dementia with agitation 5 12/21/2024 Encounters Date Type Department Care Team Description 12/21/2024 9:30 AM EST Office Visit [facility] [address] [place] [address] Connor Krishna MD Primary hypertension (Primary Dx); Hypercholesterolemia ; Moderate vascular dementia with agitation (CMS/HCC); Encounter for immunization 12/21/2024 Travel 12/14/2024 Patient Outreach [facility] [address] [place] [address] Connor Krishna MD Pre-visit Planning (SDOH will need to be completed in office. ) 11/26/2024 8:00 AM EST Office Visit [facility] [address] [place] [address] BeTerell wetzel Dental calculus (Primary Dx) 11/01/2024 3:00 PM EST Office Visit [facility] [address] [place] [address] BekatelynnleTerell Dental calculus (Primary Dx) 10/25/2024 Refill [facility] MED[facility] [address] [place] [address] Connor Krishna MD Generalized anxiety disorder 10/20/2024 Refill [facility] [address] [place] [address] Connor Krishna MD Toe web intertrigo 10/20/[address] [address] Connor Krishna MD Referral 10/20/[address] [address] Connor Krishna MD Change PCP 10/15/2024 8:00 AM EST Office Visit [facility] [address] [place] [address] Terell Krishna Dental calculus (Primary Dx) 10/07/[address] [address] Connor Krishna MD telephone call 09/20/2024 3:00 PM EDT Office Visit [facility] [address] [place] [address] Delicia Moreno NP Pain of foot, unspecified laterality (Primary Dx); Mass of both feet from Last 3 Months Immunizations Name Administration Dates Next Due Influenza High-dose Quadrivalent Preservative Fr ee 09/18/2022 Pfizer Covid-19 Vaccine 12+ 12/21/2024 Pneumococcal Conjugate PCV 20 12/18/2023 Pneumococcal Polysaccharide PPSV23 07/17/2022 Tdap 09/18/2022 Zoster, Recombinant 09/18/2022,07/17/2022 Social History Tobacco Use Types Packs/Day Years Used Date Smoking Tobacco: Never Smokeless Tobacco: Never Tobacco Cessation:Counseling Given: Not Answered Alcohol Use Standard Drinks/Week Comments Not Currently [...] Orientation Straight 09/23/2022 10 :39 AM EDT Last Filed Vital Signs Vital Sign Reading [...] Mass Index 22.22 12/21/2024 9:12 AM EST Plan of Treatment Upcoming Encounters Date Type Department Care Team (Late st Contact Info) Description 01/18/2025 2:00 PM EST Office Visit [facility] [address] [place] [address] CameronkatelynnlizzethTerell Health Maintenance Due Date Last Done Comments CT Colonography 1955 Colonoscopy 1955 Colorectal Cancer Screening 1955 FIT DNA/Cologuard 1955 FIT 1955 FOBT 1955 Sigmoidoscopy 1955 SDOH Screening 12/09/2024 12/09/2023 Dental Oral Exam 04/15/2025 10/15/2024 Mammogram 04/28/2025 04/28/2023 Dental Prophylaxis 05/03/2025 11/01/2024 Depression Monitoring (PHQ-9) 06/20/2025, 12/21/2024 Dental X-Ray: Bitewings 10/16/2025 10/15/2024 Tobacco Screening 11/26/2025 11/26/2024 Alcohol/Substance Use Screening 12/21/2025 12/21/2024 Depression Screening 12/21/2025 12/21/2024, 12/21/2024 Dental X-Ray: Full Mouth 10/16/2027 10/15/2024 Lipid Panel 05/06/2028 05/06/2023, 07/19/2022, 07/05/2021 RSV Patients and Patients Aged 60 years or older (1 - 1-dose 75+ series) 2029 DTaP/Tdap/Td Vaccines (2 - T d or Tdap) 09/18/2032 09/18/2022 Hepatitis C Screening Completed 02/25/2022 Zoster Vaccines Completed 09/18/2022, 07/17/2022 Pneumococcal Vaccine: 65+ Years Completed 12/18/2023, 07/17/2022 Influenza Vaccine Completed 08/26/2024, 09/18/2022 COVID-19 Vaccine Completed 12/21/2024 HIB Vaccines Aged Out No longer eligi [...] patient's age to complete this topic Meningococcal Vaccine Aged Out No katharina tiffanie eligible based on patient's age to complete this topic RSV under 20 months Aged Out No longe r eligible based on patient's age to complete this topic Rotavirus Vaccines Aged Out No longer eligible based on patient's age to complete this topic Procedures Procedure Name Priority Date/Time Associated Diagnosis Comments ADJUNCTIVE GENERAL SERVICES - PROFESSIONAL VISITS - CASE PRESENTATION, SUBSEQUENT TO DETAILED AND EXTENSIVE TREATMENT PLANNING Routine 11/26/2024 8:00 AM EST LR PERIODONTAL SCALING AND ROOT PLANING - 1 TO 3 TEETH PER QUADRANT Routine 11/26/2024 8:00 AM EST UR PERIODONTAL SCALING AND ROOT PLANING - 1 TO 3 TEETH PER QUADRANT Routine 11/26/2024 8:00 AM EST ADJUNCTIVE GENERAL SERVICES - PROFESSIONAL VISITS - CASE PRESENTATION, SUBSEQUENT TO DETAILED AND EXTENSIVE TREATMENT PLANNING Routine 11/01/2024 3:00 PM EST ORAL HYGIENE INSTRUCTIONS Routine 11/01/2024 3:00 PM EST PROPHYLAXIS - ADULT Routine 11/01/2024 3 :00 PM EST COMPREHENSIVE ORAL EVALUATION - NEW OR ESTABLISHED PATIENT Routine 10/15/2024 8:00 AM EST ORAL HYGIENE INSTRUCTIONS Routine 10/15/2024 8:00 AM EST DIAGNOSTIC - DIAGNOSTIC IMAGING - INTRAORAL - COMPREHENSIVE SERIES OF RADIOGRAPHIC IMAGES Routine 10/15/2024 8:00 AM EST ADJUNCTIVE GENERAL SERVICES - PROFESSIONAL VISITS - CASE PRESENTATION, SUBSEQUENT TO DETAILED AND EXTENSIVE TREATMENT PLANNING Routine 10/15/2024 8:00 AM EST 13 DO AMALGAM FILLING Routine 10/15/2024 12:00 AM EST 29 O AMALGAM FILLING Routine 10/15/2024 12:00 AM EST 28 O AMALGAM FILLING Routine 10/15/2024 12:00 AM EST 20 O AMALGAM FILLING Routine 10/15/2024 12:00 AM EST XR FOOT 3+ VIEWS LEFT Routine 09/21/2024 8:48 AM EDT Pain of foot, unspecified laterality LIPID PANEL, STANDARD Routine 05/06/2023 2:52 PM EDT Hypercholesterolemi a BI MAMMOGRAM SCREENING TOMOSYNTHESIS BILATERAL Routine 04/28/2023 4:36 PM EDT ZZZ HISTORICAL HEPATITIS C AB W/REFL TO HCV RNA, QN, PCR Routine 02/25/2022 1:15 PM EDT from Last 3 Months or Most Recently Relevant to Health Maintenance Results * XR Foot 3+ Views Left (09/21/2024 8:48 AM EDT) Anatomical Region Laterality Modality Lower Extremities, Foot Left Radiogra phic Imaging 09/21/2024 8:48 AM EDT Narrative 09/21/2024 11:11 AM EDT ?[facility] ?[address] ?[place], [place] ?XRay Report ? Signed ? Patient: Rosetta Paredes ?MR#: MM ?? [id number] ? : 1955 ?Acct:[id number] ? Age/Sex: 68 / F ?ADM Date: 09/21/24 ? Loc: HO.HHCX ? Attending Dr: Delicia Moreno [employer]ILINGUAL SCHOOL PSYCHOLOGIST ? Ordering Physician: Delicia Moreno NP ?? Date of Service: 09/21/24 ?? Procedure(s): XR foot LT min 3V ?? Accession Number(s): [id number] ? cc: Delicia Moreno NP ? EXAMINATION: ?? XR FOOT, LEFT ? CLINICAL INFORMATION: ?? Left foot pain ? COMPARISON: ?? None available. ? TECHNIQUE: ?? AP, lateral, and oblique views of the left foot. ? FINDINGS: ?? No fracture, dislocation or destructive process. There is a prominent ?? plantar spur as well as prominent spurring along the posterior ?? calcaneus at the insertion of the Achilles tendon. There is mild ?? productive change along the dorsal midfoot. ? XR/XR foot LT min 3V ?? IMPRESSION: ?? Chronic degenerative change noted. No acute findings. ? Electronically signed by: ??Clark Arauz MD ??09/21/2024 11:09 AM EDT RP ? Dictated By: ?Clark Arauz MD ? Signed By: ?<Electronically signed by Clark Arauz MD in OV> ?09/21/24 1109 ? DD/ 0848 ? TD/TT: 09/21/24 0858 ? Upper And Bottom Lacer Hand: ? Procedure Note Donotuseinterpreter, Image - 09/21/[address] [address] XRay Report Signed Patient: Rosetta Paredes MMR#: [id number] : 1955cct:[id number] Age/Sex: 68 / FADM Date: 09/21/24 Loc: HO.HHCX Attending Dr: Delicia Moreno NP Ordering Physician: Delicia Moreno NP Date of Service: 09/21/24 Procedure(s): XR foot LT min 3V Accession Number(s): [id number] cc: Delicia Moreno [employer]INGUAL SCHOOL PSYCHOLOGIST EXAMINATION: XR FOOT, LEFT CLINICAL INFORMATION: Left foot pain COMPARISON: None available. TECHNIQUE: AP, lateral, and oblique views of the left foot. FINDINGS: No fracture, dislocation or destructive process. There is a prominent plantar spur as well as prominent spurring along the posterior calcaneus at the insertion of the Achilles tendon. There is mild productive change along the dorsal midfoot. XR/XR foot LT min 3V IMPRESSION: Chronic degenerative change noted. No acute findings. Electronically signed by: Clark Arauz MD 09/21/2024 11:09 AM EDT Dictated By: Clark Arauz MD Signed By: <Electronically signed by Clark Arauz MD in OV> 09/21/24 1109 DD/ 0848 TD/TT: 09/21/[address] Upper And Bottom Lacer Hand: Delicia Moreno BILINGUAL SCHOOL PSYCHOLOGIST IMG XR PROCEDURES Edited Result - Final * Lipid Panel, Standard (05/06/2023 2:52 PM EDT) Pathologist [facility] Cholesterol, Total 179 <200 mg/dL [facility] HDL Cholesterol 98 > OR = 50 mg/dL [facility] Triglycerides 84 <150 mg/dL [facility] LDL Cholesterol 65 mg/dL (calc) [facility] Comment: Reference range: <100 Desirable range <100 mg/dL for primary prevention; ?? <70 mg/dL for patients with CHD or diabetic patients with > or = 2 CHD risk factors. LDL-C is now calculated using the Owen calculation, which is a validated novel method providing better accuracy than the Friedewald equation in the estimation of LDL-C. Rachid CUMMINS et al. YVETTE. 2013;310(19): 2579-1390 (http://education.[employer]/faq/VZU948) Chol/HDLC Ratio 1.8 <5.0 (calc) [facility] Non-HDL Cholesterol 81 <130 mg/dL (calc) [facility] Comment: For patients with diabetes plus 1 major ASCVD risk factor, treating to a non-HDL-C goal of <100 mg/dL (LDL-C of <70 mg/dL) is considered a therapeutic option. Blood Venous blood specimen / Unknown 05/06/2023 2:52 PM EDT 05/06/2023 2:53 PM EDT Narrative [facility] - 05/09/2023 12:18 PM EDT FASTING:NO FASTING: NO Connor Krishna MD LAB BLOOD ORDERABLES Final Result Performing Organization Address City/State/[facility] Co de Phone Number [facility] [address], [place] [address] [facility] [address] [place] [address] * BI Mammogram Screening Tomosynthesis Bilateral (04/28/2023 4:36 PM EDT) Anatomical Region Laterality Modality Breast Bilateral Mammography 04/28/2023 4:36 PM EDT Narrative 05/01/2023 5:53 PM EDT ? [facility] ? [address] ?[place] [address] ? Mammography Report ? Signed ? Patient: Cesar Galeas,Blossom ?MR#: MM ?? [id number] ? : 1955 ?Acct:[id number] ? Age/Sex: 67 / F ?ADM Date: 04/28/23 ? Loc: HO.MAMMO ? Attending Dr: Connor Krishna MD ? Ordering Physician: Connor Krishna MD ?Results: 1 ?? Negative ? Date of Service: 04/28/23 ?Follow Up: 1 Year From Orig ?? inal Mammogram ? Procedure(s): MM tomosynthesis screening BI ?? Accession Number(s): [id number] ? cc: Connor Krishna MD ? EXAMINATION: ?? MM SCREENING DIGITAL BREAST TOMOSYNTHESIS, BILATERAL ? CLINICAL INFORMATION: ? Screening. Asymptomatic. ? The lifetime risk of breast cancer based on the Tyrer-Cuzick Model is ?? 5%. ? COMPARISON: ?? Mammography: 04/19/2022 (new baseline). ? TECHNIQUE: ?? Digital breast tomosynthesis is performed in both the craniocaudal and ?? mediolateral oblique views along with computer-aided detection (CAD). ?? Synthesized 2D images are generated from the tomosynthesis. ? FINDINGS: ?? There are scattered areas of fibroglandular density (ACR BI-RADS breast ?? composition Category b). ? There are no significant masses, abnormal calcifications, or other ?? abnormalities. ?? Parenchymal pattern is similar to prior new baseline ?? exam. No architectural abnormality. There are bilateral vascular ?? calcifications. The axilla and skin contours are unremarkable. No ?? significant changes. ? MM/MM tomosynthesis screening BI ?? IMPRESSION: ?? No mammographic evidence of malignancy. ? ASSESSMENT: ? BI-RADS 1: Negative ? RECOMMENDATION: ?? Routine annual mammography screening. ? This patient's information was entered into a reminder system with a ?? target due date for their next mammogram. ? Dictated By: ?Edmond Jerez MD ? Signed By: ?<Electronically signed by Edmond Jerez MD in OV> ?05/01/23 1750 ? DD/ 1636 ? TD/TT: ? Upper And Bottom Lacer Hand: [facility] ? Procedure Note Donnestor, Image - 05/22/2023 [facility] [address] [place] [address] Mammography Report Signed Patient: Rosetta Paredes MMR#: [id number] : 4Acct:[id number] Age/Sex: 67 / FADM Date: 04/28/23 Loc: HO.MAMMO Attending Dr: Connor Krishna MD Ordering Physician: Connor Krishna MDResults: 1 Negative Date of Service: 04/28/23Follow Up: 1 Year From [facility] Mammogram Procedure(s): MM tomosynthesis screening BI Accession Number(s): [id number] cc: Connor Krishna MD EXAMINATION: MM SCREENING DIGITAL BREAST TOMOSYNTHESIS, BILATERAL CLINICAL INFORMATION: Screening. Asymptomatic. The lifetime risk of breast cancer based on the Tyrer-Cuzick Model is 5%. COMPARISON: Mammography: 04/19/2022 (new baseline). TECHNIQUE: Digital breast tomosynthesis is performed in both the craniocaudal and mediolateral oblique views along with computer-aided detection (CAD). Synthesized 2D images are generated from the tomosynthesis. FINDINGS: There are scattered areas of fibroglandular density (ACR BI-RADS breast composition Category b). There are no significant masses, abnormal calcifications, or other abnormalities. Parenchymal pattern is similar to prior new baseline exam. No architectural abnormality. There are bilateral vascular calcifications. The axilla and skin contours are unremarkable. No significant changes. MM/MM tomosynthesis screening BI IMPRESSION: No mammographic evidence of malignancy. ASSESSMENT: BI-RADS 1: Negative RECOMMENDATION: Routine annual mammography screening. This patient's information was entered into a reminder system with a target due date for their next mammogram. Dictated By: Edmond Jerez MD Signed By: <Electronically signed by Edmond Jerez MD in OV> 05/01/23 1750 DD/ 1636 TD/TT: Upper And Bottom Lacer Hand: [facility] External Provider IMG BI PROCEDURES Final Result * HEPATITIS C AB W/REFL TO HCV RNA, QN, PCR (02/25/2022 1:15 PM EDT) HEPATITIS C ANTIBODY NON-REACT [facility] NON-REACT [facility] INDEX 0.04 <1.00 [facility] Comment: ?? HCV antibody was non-reactive. There is no laboratory ?? evidence of HCV infection. ?? In most cases, no further action is required. However, if recent HCV exposure is suspected, a test for HCV RNA (test code 68643) is suggested. ?? For additional information please refer to http://education.wunderloop.[employer]/faq/XMZ17t0 (This link is being provided for informational/ educational purposes only.) ?? 02/25/2022 1:15 PM EDT Claudio Julien MD HISTORICAL/NON ORDERABLE LABS Final Result [facility] [address] from Last 3 Months or Most Recently Relevant to Health Maintenance Insurance [facility] STANDARD [facility] MEDICAID STAND ADULT DENTAL - [facility] Care Teams Storyboard Artist Relationship Specialty Start Date End Date Connor Krishna MD [address] [place] [phone] PCP - General Internal Medicine 10/24/21
--- OUTSIDE RECORDS SUMMARY | 2024-12-21 10:30 | XMS_ITS | Encounter Summary ---
Author Organization [employer] [facility] Address [address] [facility] [address] [place] [address] Care Team Providers Care Golf Professional Name Role Phone Connor Krishna MD Primary Care Provider [phone] Reason for Visit * Reason Comments Med Refill Encounter Details Date Type Department Care Team ([facility] Contact Info) Description 12/02/2022 Refill [facility] MED[facility] [address] [place], [place] [phone] Connor Krishna MD [address] [place] [address] Chronic midline low back pain without sciatica (Primary Dx) Social History Tobacco Use Types [...] Upcoming Encounters Date Type Department Care Team ([facility] Contact Info) Description 01/18/2025 2:00 PM EST Office Visit [facility] [address] [place], [place] [phone] Terell Krishna documented as of this encounter Visit Diagnoses Diagnosis Chronic midline low back pain without sciatica- Primary documented in this encounter Care Teams Golf Professional Relationship Specialty Start Date End Date Connor Krishna MD [address] [place] [address] PCP - General Internal Medicine 10/24/21 documented as of this encounter
[2024-12-21 14:05] LABS: MANUAL DIFF FLAG NO
[2024-12-21 14:17] LABS: Basophils Percent Auto 0.5 % (0-2); Eosinophils Absolute Auto 0.1 X10*3/uL (0.0-0.4); Hematocrit 38.7 % (37.0-47.0); Hemoglobin 12.1 g/dl (12.0-16.0); Imm Gran Abs Auto 0.02 X10*3/uL (0.00-0.03); Imm Gran Pct Auto 0.3 % (0.0-0.4); Lymphocytes Percent Auto 32.6 % (20-40); Mean Corpuscular HGB Conc 31.3 g/dl (31.0-35.0); Mean Corpuscular Hemoglobin 28.1 pg (27.0-33.0); Mean Corpuscular Volume 89.8 fL (80.0-98.0); Mean Platelet Volume 11.4 fL (9.4-12.3); Monocytes Absolute Auto 0.4 X10*3/uL (0.1-1.2); Monocytes Percent Auto 7.2 % (2-11); Neutrophils Absolute Auto 3.5 x10*3/uL (2.0-8.3); Neutrophils Percent Auto 58.4 % (45-73); Platelet Count 275 X10*3/uL (160-400); Red Blood Count 4.31 X10*6/uL (4.20-5.50); Red Cell Distribution Width 13.3 % (11.0-16.0)
[2024-12-21 16:23] LABS: Alanine Aminotransferase 29 U/L (0-31); Albumin Level 4.4 g/dL (3.5-5.0); Alkaline Phosphatase 76 U/L (39-117); Anion Gap 11 (12-20); Aspartate Amino Transferase 29 U/L (5-31); Bilirubin Total 0.5 mg/dL (0.0-1.0); Blood Urea Nitrogen 11 mg/dL (9-16); Calcium 9.7 mg/dL (8.4-10.2); Carbon Dioxide 30 mmol/L (22-29); Chloride 105 mmol/L (96-108); Cholesterol 190 mg/dL (<200); Estimated Glomerular Filt Rate > 60; Glucose Random 90 mg/dL (60-115); HDL Cholesterol 90 mg/dL (>40); LDL Cholesterol Calculated 83 mg/dL (<100); Potassium 4.1 mmol/L (3.3-5.1); Sodium 142 mmol/L (135-145); Total Protein 7.9 g/dL (6.5-8.0); Triglycerides 86 mg/dL (<150)
[2024-12-21 16:40] LABS: TSH reflex Free T4 1.02 uIU/mL (0.32-4.0)
[2024-12-22 19:38] LABS: HCV Log PCR <1.18 NOT DETECTED Log IU/mL (NOT DETECTED); HepC Viral Load <15 NOT DETECTED IU/mL (NOT DETECTED)
== END 2024-12-21 09:54 | disposition home or self-care (01) ==
LOC: HO.CHCLDS 09:53
PROVIDERS: Visit Provider Internal Medicine
DX: I10 Essential (primary) hypertension (principal); E78.00 Pure hypercholesterolemia, unspecified
CPT/HCPCS: 36415; 80053; 80061; 84443; 85025; 87522

== ENCOUNTER 2025-02-21 11:04 | Outpatient (AMB) | payer OTHER, SELFPAY ==
--- NOTE | 2025-02-21 11:19 | MHC.PC.OV ---
Vital Signs 02/21/25 11:21 02/21/25 12:19 Height 4 ft 11.06 in Weight 110 lb 6 oz BMI 22.2 BP 140/82 H 120/76 Blood Pressure Location Lt brachial Lt brachial Position Sitting Sitting Pulse 68 Pulse Source Pulse Oximeter Temp 97.1 F Temp Source Temporal Artery Scan Pulse Oximetry (%) 98 Oxygen Delivery Method Room Air Intake Visit Reasons: New Patient Intake Note: Patient is a new patient here to establish care for Alzmer, HTN. Transferring care from [facility]. Medical records have been requested and have not received. Spray Gun Operator Required: Yes Spray Gun Operator Language: Sports Equipment Supervisor Name: Ayesha ([id number]) Information Interpreted: non-clinical & clinical Asian Studies Program Chair: Present Accompanied by: Daughter Allergies No Known Allergies Allergy (Verified 02/21/25 11:34) Medication List - Last Reconciled 02/21/25 by Charlotte Stone PA-C atorvastatin 40 mg PO BEDTIME bisacodyl (Dulcolax (bisacodyl)) 10 mg (2 x 5 mg) PO ONCE 1 day celecoxib 200 mg PO BID PRN diclofenac sodium 1% 2 grams topical BID escitalopram oxalate 5 mg PO DAILY hydroxyzine HCl 50 mg PO TID lisinopril 40 mg PO DAILY losartan 25 mg PO DAILY mirtazapine 15 mg PO BEDTIME multivitamin 1 tab PO DAILY naltrexone 0 mg PO omeprazole 20 mg PO DAILY polyethylene glycol 3350 (Miralax) 238 grams PO ONCE tizanidine 4 mg PO Q6-8H PRN Tobacco use date assessed: 02/21/25 Fall risk assessment: No Falls in past year Last assessed Fall Risk: 02/21/25 Dental Screening Dental Screen Date: 02/21/25 Did you have a dental visit in the last 12 months?: Yes Did you have a dental problem in the last 6 months where you did not have access to dental care?: No Was dental information given to patient?: Patient has dentist HPI New Patient HPI Details 69 year old female coming to the office for the first time. pilot instructor Ayesha ([id number]) was used for the duration of this visit. Patient is accompanied by her daughter. Transfer from [facility] last seen sometime this year. patient has several specialists including Neurology through [facility], Podiatry through [facility], psychiatry through [facility] and gynecology through [facility]. The patient is a 69-year-old female presenting with a focus on chronic medical management, especially concerning dementia, hypertension, and depression management. There has been a noted increase in anxiety, especially regarding travel, necessitating a temporary prescription to aid with this. She follows up with a neurologist and has been experiencing hand pain and stiffness which is suspected to be related to arthritis. There is a comprehensive medication management issue regarding inefficacy and risk of over-sedation from her current regimen of mirtazapine, escitalopram, and hydroxyzine. The patient additionally manages constipation through increased hydration and fibrous intake and has routine follow-ups with a hide or skin buffer after a nail removal due to a prior fungal infection. bone density and mammo: February 2025 [facility]: April 2025 [facility] Medical History Dementia Hypertension Anxiety Surgical History H/O: hysterectomy Hx of section Family History Mother Breast CA Other Mental health disorder Social History Household Members Other:: daughter Housing: Apartment Alcohol intake: never Patient Tobacco Use Status: Never used Tobacco e-Cigarette/Vaping Use: Never Used Second Hand Smoke Exposure: No service: No Current occupational status: disabled Sexual orientation: Straight/Heterosexual Gender identity: Female Cognitive needs: Yes (walker) Hearing needs: No Vision needs: No Female Reproductive History Menstrual Age of Menarche: 14 Questionnaire PHQ-9 Over the last 2 weeks, how often have you been bothered by any of the following problems? 1. Little interest or pleasure in doing things: more than half the days 2. Feeling down, depressed, or hopeless: several days 3. Trouble falling or staying asleep, or sleeping too much: more than half the days 4. Feeling tired or having little energy: more than half the days 5. Poor appetite or overeating: more than half the days 6. Feeling bad about yourself - or that you are a failure or have let yourself or your family down: not at all 7. Trouble concentrating on things, such as reading the newspaper or watching television: several days 8. Moving or speaking so slowly that other people could have noticed. Or the opposite - being so fidgety or restless that you have been moving around a lot more than usual: more than half the days 9. Thoughts that you would be better off or of hurting yourself in some way: not at all Total score: 12 Depression Screening Interpretation: Positive Depression Screening Follow-up: Existing condition and In treatment Depression Screening Done: Yes Source: Developed by Drs. Rohit Vance, Suad De La Cruz, Chetan Houston and colleagues, with an educational josé miguel from [employer]. Thrive Questionnaire Date Thrive assessed: 02/21/25 I am a: Parent/Caregiver What is your living situation today?: I have a steady place to live Within the past 12 months, did the food you bought not last and you didn't have the money to get more?: Often true Within the past 12 months, did you worry whether your food would run out before you got money to buy more?: Often true Do you have trouble paying for medicines?: No Do you have trouble getting transportation to medical appointments?: No Do you have trouble paying your heating and electricity bill?: No Do you have trouble taking care of your child, family member or friend?: No Do you have trouble with day-to-day activities such as bathing, preparing meals, shopping, managing finances, etc.?: Yes Are you currently unemployed and looking for a job?: No Are you interested in more education?: No Please select the resources that you would like help with: Daily support Currently or been in a relationship where the following occur: No concerns reported THRIVE Score: 2 AUDIT C Alcohol Use Questionnaire (AUDIT-C) 1. How often do you have a drink containing alcohol?: Never Total Score: 0 SIVA-7 AMB Questionnaire SIVA-7 Date SIVA - 7 assessed: 02/21/25 Feeling nervous, anxious, or on edge: 0 = Not at all Not being able to stop or control worryin = Not at all Worrying too much about different things: 0 = Not at all Trouble relaxin = Several days Being so restless that it is hard to sit still: 1 = Several days Becoming easily annoyed or irritable: 1 = Several days Feeling afraid as if something awful might happen: 0 = Not at all Total SIVA-7 score (0-4 normal; 5-9 mild; 10-14 moderate; 15-21 severe): 3 Source: Developed by Drs. Rohit Vance, Suad De La Cruz, Chetan Houston and colleagues, with an educational josé miguel from [employer]. Review of Systems Const Denies chills, Reports fatigue, Denies fever(s) and Reports poor appetite Eyes Reports no additional complaints ENT Denies dysphagia, Denies dizziness and Denies odynophagia Card Denies chest pain, Denies syncope, Denies lightheadedness and Denies dyspnea Resp Denies cough and Denies dyspnea GI Denies abdominal pain, Reports constipation, Denies dysphagia, Denies diarrhea and Denies odynophagia Reports no additional complaints Musc Reports no additional complaints and Denies abnormal gait Skin/Breast Reports system reviewed and no additional complaints, except as documented Neuro Denies abnormal gait, Denies dizziness and Denies syncope Psych Reports no additional complaints Endo Reports fatigue Physical exam (Primary Care) Vital Signs: Last Vital Signs Temp 97.1 F 02/21/25 11:21 Pulse 68 02/21/25 11:21 BP 140/82 H 02/21/25 11:21 Pulse Ox 98 02/21/25 11:21 Oxygen Delivery Method Room Air 02/21/25 11:21 BMI result Body Mass Index 22.2 Tobacco/Smoking Status: Tobacco use Status Tobacco use date assessed 02/21/25 02/21/25 11:28 Patient Tobacco Use Status Never used Tobacco 02/21/25 11:28 e-Cigarette/Vaping Use Never Used 02/21/25 11:28 PHQ-9: PHQ-9 Score PHQ-9: Total score 12 02/21/25 11:36 Depression Screening Interpretation: Positive Depression Screening Follow-up: Existing condition and In treatment Thrive Assessment: Date of Thrive Assessment Date Thrive assessed 02/21/25 02/21/25 11:28 Currently or been in a relationship where the following occur: No concerns reported Const General: cooperative, healthy appearing, comfortable and no acute distress Orientation/consciousness: patient oriented x3 HENMT Head: Yes normocephalic Ears: hearing grossly normal bilaterally General nose exam: Normal external nose present Eyes General: appearance normal, both eyes and all related structures Conjunctivae: conjunctivae normal Neck Neck: Yes full ROM and Yes no lymphadenopathy Resp Effort & Inspection: normal respiratory effort Auscultation: clear to auscultation bilaterally, no crackles, no rales, no rhonchi and no wheezes Cardio Rate: regular rate Rhythm: regular rhythm Skin General skin exam: no rashes or lesions noted Neuro General: patient oriented x3 Gait exam (Neuro): Normal gait present Extrem General: Yes normal to inspection, Yes full ROM and No edema Psych Affect: normal affect Attitude: cooperative Insight: Good insight present (Psych) Judgement: Good judgement present (Psych) Coding Level of Care Code New Pt Level 4 (21851) Diagnoses Hypertension I10 Osteoporosis M81.0 Dementia F03.90 Anxiety F41.9 Hypercholesterolemia E78.00 GERD (gastroesophageal reflux disease) K21.9 Depression F32.A Constipation K59.00 Bilateral hand pain M79.641; M79.642 Assessment & Plan Assessment & Plan (1) Hypertension: Code(s): I10 - Essential (primary) hypertension Category: Medical Plan: Continue on current blood pressure medication. Avoid salt intake and encourage healthy diet and regular exercise. (2) Osteoporosis: Comment: 03/2022: AP SPINE L1-L4: T-score -2.7 LEFT FEMUR, NECK:T score -3.2, osteoporosis. LEFT FEMUR, TOTAL: T score -3.8, osteoporosis Code(s): M81.0 - Age-related osteoporosis without current pathological fracture Category: Medical Plan: Repeat DEXA scan scheduled for February 2025. (3) Dementia: Code(s): F03.90 - Unspecified dementia, unspecified severity, without behavioral disturbance, psychotic disturbance, mood disturbance, and anxiety Category: Medical Plan: Continue to follow up with [facility] plan to request the notes at this time. Patient has difficulty managing anxiety and depression related to dementia currently following with [facility] for management as well. (4) Anxiety: Comment: [facility] for counseling and psychiatry Code(s): F41.9 - Anxiety disorder, unspecified Category: Medical Plan: Patient on several medications for anxiety and depression currently following with counselor and psychiatrist through [facility] for management. (5) Hypercholesterolemia: Code(s): E78.00 - Pure hypercholesterolemia, unspecified Category: Medical Plan: Avoid foods that are high in cholesterol such as red meat, fried foods, eggs and baked goods. Triglyceride goal of less than 150 and LDL goal of less than 100. Continue on Atorvastatin 40. Last blood work at goal. (6) GERD (gastroesophageal reflux disease): Code(s): K21.9 - Gastro-esophageal reflux disease without esophagitis Category: Medical Plan: Avoid trigger foods such as citrus, tomato products, soda, caffeine, spicy foods and other foods that may be irritating to your stomach. Avoid laying flat 3-4 hours after eating and elevate the head of the bed 30 degrees to prevent acid from moving into the esophagus. Continue on omeprazole 20 (7) Depression: Comment: [facility] for psychiatry and counseling Code(s): F32.A - Depression, unspecified Category: Medical Plan: Patient on several medications for anxiety and depression currently following with counselor and psychiatrist through [facility] for management. Has a follow up tomorrow (8) Constipation: Code(s): K59.00 - Constipation, unspecified Category: Medical Plan: Three rules of constipation: stay well hydrated, increase fiber intake, exercise as tolerated. Continue to use Miralax prn. (9) Bilateral hand pain: Code(s): M79.641 - Pain in right hand; M79.642 - Pain in left hand Category: Medical Plan: patient complaining of bilateral hand pain and stiffness worse in the morning and improves throughout the day. Offered workup for rheumatoid arthritis which was declined at this time. Plan to continue using diclofenac gel as needed for pain. Plan Addressing the patient's dementia involves maintaining neurologist follow-ups and reinforcing behavioral therapy for associated psychiatric symptoms. Medication management regarding her anxiety and depression indicates an attempt to balance efficacy with the risk of sedation. Management of essential hypertension and hyperlipidemia appears effective as evidenced by current lab results. Arthritic symptoms in the hands will be addressed by continuing arthritis cream applications, and lifestyle modifications will help alleviate constipation. Scheduled tests, including mammography and colonoscopy, contribute to her comprehensive care plan. This note was constructed using voice recognition software. While every effort has been made to ensure accuracy and outside residential sales professional, still areas may have been included sometimes these areas may affect the content or meeting of the given symptoms. Total time spent caring for the patient today was 30 minutes. This includes time spent before the visit reviewing the chart, time spent during the visit, and time spent after the visit and documentation. Patient was informed and verbally consented to the use of an ambient scribe for clinic note documentation during this visit. Medications: New diclofenac sodium 1% 2 grams topical BID 100 grams 0RF
[2025-02-21 11:21] VITALS: BP 140/82; PULSE 68; TEMP 36.2; O2SAT 98; BMI 22.2
[2025-02-21 12:19] VITALS: BP 120/76
--- OUTSIDE RECORDS SUMMARY | 2025-02-21 12:39 | XMS_ITS | Encounter Summary ---
Author Organization [email or web address] [facility] Address [address] [place] [address] [address] [place] [address] Care Team Providers Care Mental Health Director Name Role Phone Connor Krishna MD Primary Care Provider [phone] Catrina Light MD Primary Care Provider [phone] Reason for Visit * Reason Comments Med Refill Encounter Details Date Type Department Care Team (Late st Contact Info) Description 12/02/2022 Refill [facility] MEDICINE [address] [place] [address] Connor Krishna MD [address] [place], [place] [id number] Chronic midline low back pain without sciatica [...] Care Team (Late st Contact Info) Description 02/25/2025 9:00 AM EDT Office Visit [facility] CH[facility] ADULT DENTAL [address] [place], [place] [phone] Georgina Jackson DDS [address] [place] [address] 04/01/2025 1:45 PM EDT Office Visit [facility] MEDICINE [address] [place] [address] Catrina Light MD [address] [place] [address] documented as of this encounter Visit Diagnoses Diagnosis Chronic midline low back pain without sciatica- Primary documented in this encounter Care Teams Mental Health Director Relationship Specialty Start Date End Date Connor Krishna MD [address] [place] [id number] PCP - General Internal Medicine 10/24/21 01/05/25 Catrina Light MD [address] [place] [address] PCP - General Family Medicine 01/06/25 documented as of this encounter
--- OUTSIDE RECORDS SUMMARY | 2025-02-21 12:39 | XMS_ITS | Encounter Summary ---
Author Organization [employer] [facility] Address [address] [place] [address] [address] [place] [address] Care Team Providers Care Cephalometric Tracer Name Role Phone Connor Krishna MD Primary Care Provider [phone] Catrina Light MD Primary Care Provider [phone] Reason for Visit * Reason Comments Med Refill Encounter Details Date Type Department Care Team (Late st Contact Info) Description 12/23/2022 Refill [facility] MEDICINE [address] [place] [address] Connor Krishna MD [address] [place], [place] [phone] Generalized anxiety disorder Social History Tobacco Use [...] Description 02/25/2025 9:00 AM EDT Office Visit [facility] CH[facility] ADULT DENTAL [address] [place] [address] Georgina Jackson DDS [address] [place] [address] 04/01/2025 1:45 PM EDT Office Visit [facility] MEDICINE [address] [place] [address] Catrina Light MD [address] [place] [id number] documented as of this encounter Visit Diagnoses Diagnosis Generalized anxiety disorder documented in this encounter Care Teams Cephalometric Tracer Relationship Specialty Start Date End Date Connor Krishna MD [address] [place] [id number] PCP - General Internal Medicine 10/24/21 01/05/25 Catrina Light MD [address] [place] [address] PCP - General Family Medicine 01/06/25 documented as of this encounter
--- OUTSIDE RECORDS SUMMARY | 2025-02-21 12:39 | XMS_ITS | Clinical Summary ---
Author Organization [employer] Address 75 [facility] 7t [place] [address] Care Team Providers Care Financial Management Name Role Phone Catrina Light MD Primary Care Provider [phone] Allergies No known active allergies Medications Acetaminophen [...] mouth at bedtime. 4 Active nystatin (Nystop) [id number] UNIT/GM powderIndicatio ns:Toe web intertrigo APPLY TOPICALLY [...] Encounters Date Type Department Care Team Description 02/17/[address] [facility] OPTOMETRY [address] [place], [place] [phone] Minerva Salazar OD 02/08/2025 8:00 AM EDT Office Visit [facility] ADULT DENTAL [address] [place] [address] Terell Krishna Dental calculus (Primary Dx) 12/23/2024 1:20 PM EST Office Visit [facility] WALK-IN CENTER [address] [place], [place] [phone] Soraya Fortune DO Onychomycosis (Primary Dx); Callus 12/22/2024 Telephone [facility] MED [facility] PEDS [address] [place], [place] [address] Connor Krishna MD 12/21/2024 9:30 AM EST Office Visit [facility] [address] [facility] [place] [address] Connor Krishna MD Primary hypertension (Primary Dx); Hypercholesterolemia; Moderate vascular dementia with agitation (CMS/HCC); Encounter for immunization 12/21/2024 Travel 12/14/2024 Patient Outreach [facility] [address] [facility] [place] [address] Connor Krishna MD Pre-visit Planning (SDOH will need to be completed in office. ) 11/26/2024 8:00 AM EST Office Visit [facility] ADULT DENTAL 505 [facility] [place] [address] Terell Krishna Dental calculus (Primary Dx) from Last 3 Months Immunizations Name Administration [...] Sign Reading Time Taken Comments Blood Pressure 122/66 02/08/2025 8:03 AM EDT Pulse 68 02/08/2025 8:03 AM EDT Temperature 36.4 ??C (97.5 ??F) 12/23/2024 1:29 PM ES T Respiratory Rate 17 12/23/2024 1:29 PM EST Oxygen Saturation 96% 12/23/2024 1:29 PM EST Inhaled Oxygen Concentration - - Weight 53.4 kg (117 lb 12.8 oz) 12/23/2024 1:29 PM EST Height 149.9 cm (4' 11 ) 12/21/2024 9:12 AM EST Body Mass Index 23.79 12/21/2024 9:12 AM EST Plan of Treatment Upcoming Encounters Date Type Department Care Team (Late st Contact Info) Description 02/25/2025 9:00 AM EDT Office Visit [facility] CHC ADULT DENTAL [address] [place] [address] Georgina Jackson DDS [address] [place], [place] [phone] 04/01/2025 1:45 PM EDT Office Visit [facility] MEDICINE [address] [place] [address] Catrina Light MD [address] [place], [place] [phone] Health Maintenance Due Date Last Done Comments CT Colonography 1955 Colonoscopy 1955 Colorectal Cancer Screening 1955 FIT DNA/Cologuard 1955 FIT 1955 FOBT 1955 Sigmoidoscopy 1955 SDOH Screening 12/09/2024 12/09/2023 Dental Oral Exam 04/15/2025 10/15/2024 Mammogram 04/28/2025 04/28/2023 Dental Prophylaxis 05/03/2025 11/01/2024 Depression Monitoring (PHQ-9) 06/20/2025 12/21/2024, 12/21/2024 Dental X-Ray: Bitewings 10/16/2025 10/15/2024 Alcohol/Substance Use Screening 12/21/2025 12/21/2024 Depression Screening 12/21/2025 12/21/2024, 12/21/19 Tobacco Screening 02/08/2026 02/08/2025 Dental X-Ray: Full Mouth 10/16/2027 10/15/2024 RSV Patients and Patients Aged 60 years or older (1 - 1-dose 75+ series) 2029 Lipid Panel 12/21/2029 12/21/2024, 04/24, 07/19/2022, Additional history exists DTaP/Tdap/Td Vaccines (2 - Td or Tdap) 09/18/2032 09/18/2022 Zoster Vaccines Completed 09/18/2022, 07/17/2022 Pneumococcal Vaccine: 50+ Years Completed 12/18/2023, 07/17/2022 Influenza Vaccine Completed 08/26/2024, 09/18/2022 COVID-19 Vaccine Completed 12/21/2024 Hepatitis C Screening Completed 12/21/2024, 022 HIB Vaccines Aged Out No longer eligi [...] Procedure Name Priority Date/Time Associated Diagnosis Comments CASE PRESENTATION, DETAILED AND EXTENSIVE TREATMENT PLANNING Routine 02/08/2025 8:00 AM EDT LL PERIODONTAL SCALING AND ROOT PLANING - 1 TO 3 TEETH PER QUADRANT Routine 02/08/2025 8:00 AM EDT UL PERIODONTAL SCALING AND ROOT PLANING - 1 TO 3 TEETH PER QUADRANT Routine 02/08/2025 8:00 AM EDT TSH W/REFLEX TO FT4 Routine 12/21/2024 9 :54 AM EST Primary hypertension Hypercholesterolem ia COMPREHENSIVE METABOLIC PANEL Routine 12/21/2024 9:54 AM EST Primary hypertension Hypercholesterolem ia HEPATITIS C VIRAL RNA, QUANTITATIVE, REAL-TIME PCR Routine 12/21/2024 9:54 AM EST Primary hypertension Hypercholesterolem ia LIPID PANEL, STANDARD Routine 12/21/2024 9:54 AM EST Primary hypertension Hypercholesterolem ia CBC WITH AUTO DIFFERENTIAL Routine 12/21/2024 9:54 AM EST Primary hypertension Hypercholesterolem ia CASE PRESENTATION, DETAILED AND EXTENSIVE TREATMENT PLANNING Routine 11/26/2024 8:00 AM EST LR PERIODONTAL SCALING AND ROOT PLANING - 1 TO 3 TEETH PER QUADRANT Routine 11/26/2024 8:00 AM EST UR PERIODONTAL SCALING AND ROOT PLANING - 1 TO 3 TEETH PER QUADRANT Routine 11/26/2024 8:00 AM EST PROPHYLAXIS - ADULT Routine 11/01/2024 3 :00 PM EST INTRAORAL - COMPLETE SERIES OF RADIOGRAPHIC IMAGES Routine 10/15/2024 8:00 AM EST COMPREHENSIVE ORAL EVALUATION - NEW OR ESTABLISHED PATIENT Routine 10/15/2024 8:00 AM EST BI MAMMOGRAM SCREENING TOMOSYNTHESIS BILATERAL Routine 04/28/2023 4:36 PM EDT from Last 3 Months or Most Recently Relevant to Health Maintenance Results * TSH W/Reflex to FT4 (12/21/2024 9:54 AM EST) Pathologist [facility] TSH reflex Free T4 1.02 0.32 - 4.0 uIU/mL [facility] Blood Venous blood specimen / Unknown 12/21/2024 9:54 AM EST 12/21/2024 2:01 PM EST Connor Krishna MD LAB BLOOD ORDERABLES Final Result Performing Organization Address [facility] Co de Phone Number [facility] [address] [place] [phone] * Hepatitis C Viral RNA, Quantitative, Real-Time PCR (12/21/2024 9:54 AM EST) [facility] Hepatitis C Viral Load <15 NOT DETECTED NOT DETECTED IU/mL [facility] HCV Log PCR <1.18 NOT DETECTED NOT DETECTED Log IU/mL [facility] Comment:For additional infor mation, please refer [email or web address]/faq/[email or web address](This link is being provided for informational/educational purposes only.)THIS TEST WAS PERFORMED AT:[facility] [place] [phone] SOOD MD Blood Venous blood specimen / Unknown 12/21/2024 9:54 AM EST 12/21/2024 2:01 PM EST us Connor Krishna MD LAB BLOOD ORDERABLES Final Result Performing Organization Address [facility] Co de Phone Number [facility] [address] [place] [phone] [phone] * CBC auto differential (12/21/2024 9:54 AM EST) [facility] White Blood Count 6.0 4.8 - 10.8 X10*3/uL [facility] Red Blood Count 4.31 4.20 - 5.50 X10*6/uL [facility] Hemoglobin 12.1 12.0 - 16.0 g/dl [facility] Hematocrit 38.7 37.0 - 47.0 % [facility] Mean Corpuscular Volume 89.8 80.0 - 98.0 fL [facility] Mean Corpuscular Hemoglobin 28.1 27.0 - 33.0 pg [facility] Mean Corpuscular HGB Conc 31.3 31.0 - 35.0 g/dl [facility] Red Cell Distribution Width 13.3 11.0 - 16.0 % [facility] Platelet Count 275 160 - 400 X10*3/uL [facility] Mean Platelet Volume 11.4 9.4 - 12.3 fL [facility] Neutrophils Percent Auto 58.4 45 - 73 % [facility] Imm Gran Pct Auto 0.3 0.0 - 0.4 % [facility] Lymphocytes Percent Auto 32.6 20 - 40 % [facility] Monocytes Percent Auto 7.2 2 - 11 % [facility] Eosinophils Percent Auto 1.0 0 - 4 % [facility] Basophils Percent Auto 0.5 0 - 2 % [facility] NRBC Pct Auto 0.0 0.0 - 0.2 /100WBC [facility] Neutrophils Absolute Auto 3.5 2.0 - 8.3 x10*3/uL [facility] Imm Gran Abs Auto 0.02 0.00 - 0.03 X10*3/uL [facility] Lymphocytes Absolute Auto 2.0 1.2 - 4.9 X10*3/uL [facility] Monocytes Absolute Auto 0.4 0.1 - 1.2 X10*3/uL [facility] Eosinophils Absolute Auto 0.1 0.0 - 0.4 X10*3/uL [facility] Basophils Absolute Auto 0.0 0.0 - 0.2 X10*3/uL [facility] NRBC Abs Auto 0.000 0.0 - 0.012 X10*3/uL [facility] Blood Venous blood specimen / Unknown 12/21/2024 9:54 AM EST 12/21/2024 2:01 PM EST us Connor Krishna MD LAB BLOOD ORDERABLES Final Result Performing Organization Address [facility]/ZIP Co de Phone Number [facility] [address] [place] [phone] * Lipid Panel, Standard (12/21/2024 9:54 AM EST) Triglycerides 86 <150 mg/dL [facility] Comment:Desirable Triglyceri de: less than 150 mg/dLBorderline High Triglyceride 150-199 mg/dLHigh Triglyceride: 200-499 mg/dLVery High Triglyceride: greater than or equal to 5OO mg/dL Cholesterol 190 <200 mg/dL [facility] Comment:Desirable Cholestero l: less than 200 mg/dLBorderline High Cholesterol: 200-239 mg/dLHigh Cholesterol: greater than 239 mg/dL LDL Cholesterol Calculated 83 <100 mg/dL [facility] Comment:Desirable LDL: less than 100 mg/dLNear Optimal/Above Optimal LDL: 110- 129 mg/dLBorderline High LDL: 130-159 mg/dLHigh LDL: 160-189 mg/dLVery High LDL: greater than or equal to 190 mg/dL HDL Cholesterol 90 >40 mg/dL [facility] Comment:Desirable HDL: great er than 40 mg/dL Note: This HDL assay may give artificially low results in patients with liver disease. Blood Venous blood specimen / Unknown 12/21/2024 9:54 AM EST 12/21/2024 2:01 PM EST us Connor Krishna MD LAB BLOOD ORDERABLES Final Result Performing Organization Address City/[facility]/ZIP Co de Phone Number [facility] [address] [place] [phone] * (ABNORMAL) Comprehensive Metabolic Panel (12/21/2024 9:54 AM EST) Sodium 142 135 - 145 mmol/L [facility] Potassium 4.1 3.3 - 5.1 mmol/L [facility] Chloride 105 96 - 108 mmol/L [facility] Carbon Dioxide 30(H) 22 - 29 mmol/L [facility] Anion Gap 11(L) 12 - 20 [facility] Urea Nitrogen (BUN) 11 9 - 16 mg/dL [facility] Creatinine, Serum 0.64 0.5 - 1.4 mg/dL [facility] Estimated Glomerular Filt Rate >60 [facility] Comment:Chronic Kidney Disea se: Estimated GFR < 60 mL/min/1.80o3Umokfe Kidney Disease: Estimated GFR < 15 mL/min/1.73m2 Glucose 90 60 - 115 mg/dL [facility] Calcium 9.7 8.4 - 10.2 mg/dL [facility] Bilirubin, Total 0.5 0.0 - 1.0 mg/dL [facility] Aspartate Amino Transferase 29 5 - 31 U/L [facility] Alanine Aminotransferase 29 0 - 31 U/L [facility] Total Protein 7.9 6.5 - 8.0 g/dL [facility] Albumin Level 4.4 3.5 - 5.0 g/dL [facility] Alkaline Phosphatase 76 39 - 117 U/L [facility] Blood Venous blood specimen / Unknown 12/21/2024 9:54 AM EST 12/21/2024 2:01 PM EST us Connor Krishna MD LAB BLOOD ORDERABLES Final Result [facility] [address] [place] [phone] * BI Mammogram Screening Tomosynthesis Bilateral (04/28/2023 4:36 PM EDT) Anatomical Region Laterality Modality Breast Bilateral Mammography 04/28/2023 4:36 PM EDT Narrative 05/01/2023 5:53 PM EDT ? [facility] ? [address] ?[place] [address] ? Mammography Report ? Signed ? Patient: Cesar Galeas,Blossom ?MR#: [id number] ?? [id number] ? : 1955 ?Acct:[id number] ? Age/Sex: 67 / F ?ADM Date: 04/28/23 ? Loc: HO.MAMMO ? Attending Dr: Connor Krishna MD ? Ordering Physician: Connor Krishna MD ?Results: 1 ?? Negative ? Date of Service: 04/28/23 ?Follow Up: 1 Year From Orig ?? inal Mammogram ? Procedure(s): MM tomosynthesis screening BI ?? Accession Number(s): [id number] ? cc: Connor Krishna MD ? EXAMINATION: [...] signed by Edmond Jerez MD in OV> ?05/01/231749 ? DD/ 1636 ? TD/TT: ? Religious Studies Professor: [facility] ? Procedure Note Donotscottinterpreter, Image - 05/22/2023 [facility] [address] [place] [address] Mammography Report Signed Patient: Rosetta Paredes MMR#: [id number] : 1955cct:[id number] Age/Sex: 67 / FADM Date: 04/28/23 Loc: HO.MAMMO Attending Dr: Connor Krishna MD Ordering Physician: Connor Krishna MDResults: 1 Negative Date of Service: 04/28/23Follow Up: 1 Year From Orig inal Mammogram Procedure(s): MM tomosynthesis screening BI Accession Number(s): [id number] cc: Connor Krishna MD EXAMINATION: MM SCREENING [...] in OV> 05/01/23 1750 DD/ 1636 TD/TT: Religious Studies Professor: AWILDA [facility] External Provider IMG BI PROCEDURES Final Result from Last 3 Months or Most Recently Relevant to Health Maintenance [place] [address] - [facility] - [facility] Care Teams Financial Management Relationship Specialty Start Date End Date Catrina Light MD [address] [place] [phone] PCP - General Family Medicine 01/06/25
--- OUTSIDE RECORDS SUMMARY | 2025-02-21 12:39 | XMS_ITS | Encounter Summary ---
Author Organization [facility] Address [address] [place] [address] 7 [place] [address] Care Team Providers Care Continuous Drier Helper Name Role Phone Connor Krishna MD Primary Care Provider [phone] Catrina Light MD Primary Care Provider [phone] Reason for Visit * Reason Comments Med Refill Encounter Details Date Type Department Care Team (Late st Contact Info) Description 11/20/2022 Refill [facility] MEDICINE [address] [place] [address] Connor Krishna MD [address] [place], [place] [phone] Social History Tobacco Use Types Packs/Day Years [...] Description 02/25/2025 9:00 AM EDT Office Visit [facility] CHC ADULT DENTAL [address] [place], [place] [phone] Georgina Jackson DDS [address] [place] [address] 04/01/2025 1:45 PM EDT Office Visit [facility] MEDICINE [address] [place] [address] Catrina Light MD [address] [place] [phone] documented as of this encounter Visit Diagnoses Not on filedocumented in this encounter Care Teams Continuous Drier Helper Relationship Specialty Start Date End Date Connor Krishna MD [address] [place] [phone] PCP - General Internal Medicine 10/24/21 01/05/25 Catrnia Light MD [address] [place] [phone] PCP - General Family Medicine 01/06/25 documented as of this encounter
--- OUTSIDE RECORDS SUMMARY | 2025-02-21 12:39 | XMS_ITS | Encounter Summary ---
Author Organization [employer] Address [address] [facility] 7t [place] [address] Care Team Providers Care Soc Analyst Name Role Phone Connor Krishna MD Primary Care Provider [phone] Catrina Light MD Primary Care Provider [phone] Reason for Visit * Reason Onset Date Comments Appointment Request 07/11/2023 Encounter Details Date Type Department Care Team ([facility] st Contact Info) Description 07/11/2023 Telephone [facility] CHC MED & PEDS [address] [place], [place] [phone] Connor Krishna MD [address] [place], [place] [phone] Appointment Request Social History Tobacco Use Types [...] a check up. Please contact daughter at [phone] documented in this encounter Plan of Treatment Upcoming Encounters Date Type Department Care Team (Late st Contact Info) Description 02/25/2025 9:00 AM EDT Office Visit [facility] CHC ADULT DENTAL [address] [place] [address] Georgina Jackson DDS [address] [place] [address] 04/01/2025 1:45 PM EDT Office Visit [facility] MEDICINE [address] [place] [address] Catrina Light MD [address] [place] [address] documented as of this encounter Visit Diagnoses Not on filedocumented in this encounter Care Teams Soc Analyst Relationship Specialty Start Date End Date Connor Krishna MD [address] [place], [place] [phone] PCP - General Internal Medicine 10/24/21 01/05/25 Catrina Light MD [address] [place] [address] [phone] PCP - General Family Medicine 01/06/25 documented as of this encounter
--- OUTSIDE RECORDS SUMMARY | 2025-02-21 12:39 | XMS_ITS | Clinical Summary ---
Author Organization [facility] Address [address] [place] [address] Phone Care Team Providers Care Department Of Sociology Chair Name Role Phone Physician, Pcp Unknown Primary Care Provider Cecy vailable Allergies No known active allergies Medications ciclopirox (LOPROX) 0.77 % gel Apply topically 2 (two) times a day. 45 g 03/30/20 25 Active Encounters Date Type Department Care Team Description 12/30/2024 9:45 AM EST Office Visit [facility] [address] [phone] Buddy Piper, DPM Plantar fascial fibromatosis of left foot (Primary Dx); Dermatophytosis of nail; Pain in toe of right foot; Pain in toe of left foot; Difficulty walking from Last 3 Months Social History Tobacco Use Types Packs/Day Years Used Date Smoking Tobacco: Never Assessed Comments Unknown Sex and Gender Information Value Date Recorded Sex Assigned at Not on file Legal Sex Female 2:57 AM EST Gender Identity Not on file Sexual Orientation Not on file Last Filed Vital Signs Vital Sign Reading Time Taken Comments Blood Pressure - - Pulse - - Temperature - - Respiratory Rate - - Oxygen Saturation - - Inhaled Oxygen Concentration - - Weight 63.5 kg (140 lb) 12/30/2024 9:42 AM EST Height 147.3 cm (4' 10 ) 12/30/2024 9:42 AM EST Body Mass Index 29.26 12/30/2024 9:42 AM EST Plan of Treatment Health Maintenance Due Date Last Done Comments Colorectal Cancer Screening: Colonoscopy 10/27/2022 Falls Risk Assessment 10/27/2022 Hepatitis C Screening 10/27/2022 Osteoporosis Screening (Bone Density Screening) 10/27/2022 Social Influencers of Health Screening 10/27/2022 Breast Cancer Screening 04/28/2025 04/28/2023 Depression Screening 12/21/2025 12/21/2024 Hypertension/CHF/CAD Annual BMP Blood Test 12/21/2025 12/21/2024 RSV Immunization Patients 60 + Years Old (1 - 1-dose 75+ series) 2029 Cholesterol Screening (Lipid Panel) 12/21/2029 12/21/2024 DTaP,Tdap,and Td Vaccines (2 - Td or Tdap) 09/18/2032 [...] patient's age to complete this topic Meningococcal B Vacine Aged Out No lo nger eligible based on patient's age to complete this topic RSV Immunization Patients Under 20 months Aged Out No longer eligible b ased on patient's age to complete this topic Varicella Vaccines Aged Out No longer eligible based on patient's age to complete this topic Insurance , [address] [address] [facility] Member Subscriber Plan / Payer (Ef fective 2024-Present) Name:Rosetta Paredes Relation to Subscriber:Self Name:Rosetta Paredes Payer ID:[id number] Group ID:[id number] Type:Not on file Address: [address] [place] [address] Care Teams Department Of Sociology Chair Relationship Specialty Start Date End Date Physician, Pcp Unknown PCP - General 12/15/24
--- OUTSIDE RECORDS SUMMARY | 2025-02-21 12:39 | XMS_ITS | Encounter Summary ---
Author Organization [employer] Address 75 [facility] 7t [place] [address] Care Team Providers Care Occupational Health Nurse Supervisor Name Role Phone Catrina Light MD Primary Care Provider [phone] Encounter Details Date Type Department Care Team ([facility] st Contact Info) Description 02/17/2025 Telephone [facility] OPTOMETRY [address] [place], [place] [phone] Minerva Salazar, OD [address] [place], [place] [phone] Social History Tobacco Use Types Packs/Day Years [...] Description 02/25/2025 9:00 AM EDT Office Visit [facility] CHC ADULT DENTAL [address] [place] [address] Georgina Jackson DDS [address] [place] [address] 04/01/2025 1:45 PM EDT Office Visit [facility] MEDICINE [address] [place] [address] Catrina Light MD [address] [place] [address] documented as of this encounter Visit Diagnoses Not on filedocumented in this encounter Additional Health Concerns Assessment Noted Time PHQ-9 Depression Total Score: 13 025 9:50 AM EST documented as of this encounter Care Teams Occupational Health Nurse Supervisor Relationship Specialty Start Date End Date Catrina Light MD [address] [place] [phone] PCP - General Family Medicine 01/06/25 documented as of this encounter
== END 2025-02-21 12:08 | disposition home or self-care (01) ==
LOC: HO.HMCH 11:05
PROVIDERS: PCP Nurse Practitioner Family
DX: I10 Essential (primary) hypertension (principal); M81.0 Age-related osteoporosis without current pathological fracture; F03.90 Unspecified dementia, unspecified severity, without behavioral disturbance, psychotic disturbance, mood disturbance, and anxiety; F41.9 Anxiety disorder, unspecified; E78.00 Pure hypercholesterolemia, unspecified; K21.9 Gastro-esophageal reflux disease without esophagitis; F32.A Depression, unspecified; K59.00 Constipation, unspecified; M79.641 Pain in right hand; M79.642 Pain in left hand

== ENCOUNTER → 2025-02-21 11:04 | Outpatient (BNVA) | payer OTHER, SELFPAY | PROVIDERS: PCP Nurse Practitioner Family | DX: I10 Essential (primary) hypertension (principal); M81.0 Age-related osteoporosis without current pathological fracture; F03.90 Unspecified dementia, unspecified severity, without behavioral disturbance, psychotic disturbance, mood disturbance, and anxiety; F41.9 Anxiety disorder, unspecified; E78.00 Pure hypercholesterolemia, unspecified; K21.9 Gastro-esophageal reflux disease without esophagitis; F32.A Depression, unspecified; K59.00 Constipation, unspecified; M79.641 Pain in right hand; M79.642 Pain in left hand | CPT/HCPCS: 96127; 99202 ==